=== PATIENT | female | born 1955 | race Caucasian/White ===

== ENCOUNTER 2020-03-31 15:01 | Inpatient (IN) ==
[2020-03-31] MEDS ORDERED: ONDANSETRON INJ 2 MG/ML 2 ML VIAL IV STA (15:29)
[2020-03-31] MEDS ORDERED: KETOROLAC TROMETHAMINE 15 MG/ML VIAL IV STA (15:29)
[2020-03-31] MEDS ORDERED: SODIUM CHLORIDE 0.9% 500 ML IV SCH (15:30)
--- NOTE | 2020-03-31 15:37 | Emergency Department Note ---
Impression & Plan Lower back pain, Lumbar disc herniation, Fall ED Provider Note NAME: JANE BAÑUELOS AGE: 65 SEX: F : 1955 ARRIVES VIA: Walk-In INFORMANT: [Patient] ED PROVIDER(S): [Gunnar Logan MD] CHIEF COMPLAINT: Back pain HISTORY OF PRESENT ILLNESS: The patient is a 65-year-old female who states that she fell about 6 days ago. She thinks she lost her balance but she cannot be exactly sure. There was no loss of consciousness. She injured her lower back and she has had severe pain ever since. The pain is now a 10/10. The pain is worse with any movement or palpation. She has noticed some difficulty with urination and at times, she thinks she mccloud lost some urine. She has pain radiating down both legs. No numbness in the legs. The patient has not had cough or congestion or fever. She did not strike her head. There is no abdominal pain. She is not on any blood thinners. She has tried [id number] pain medication without any relief. She states that she has noticed that her legs are now more swollen because, she cannot lay down to elevate them. REVIEW OF SYSTEMS: See HPI for pertinent positives and negatives. A total of ten systems were reviewed and were otherwise negative. PMHx/PSHx: See Below SOCIAL HISTORY: See Below. PHYSICAL EXAM: GENERAL: Patient is in moderate distress from pain. HEENT: No acute trauma, normocephalic atraumatic, mucous membranes moist, no nasal congestion, no scleral icterus. NECK: No stridor, no adenopathy, no meningismus, trachea is midline. LUNGS: Clear to auscultation bilaterally, no wheeze, no rhonchi, breath sounds equal. HEART: 2/6 systolic murmur, regular rate and rhythm. ABDOMEN: Soft, nontender, bowel sounds positive, no hernias, no peritonitis. EXTREMITIES: No cyanosis, moderate bilateral pedal edema, full range of motion of all the joints without pain or difficulty, no signs for acute trauma. NEUROLOGIC: Oriented x 3, no acute motor or sensory deficits, no focal weakness. I cannot elicit reflexes in her lower extremities because she is too tense from pain. She cannot sit still for me to check the reflexes. SKIN: No rash, no jaundice, no diaphoresis. Back: Tender to the entire lower back in the area of the lumbar spine, no step- offs, no contusion. DIFFERENTIAL DIAGNOSIS: Musculoskeletal, disc herniation, fracture, metastatic disease, cord matteo geri, discitis, sciatica, cauda equina, infection, aortic disease, renal colic, gastrointestinal, as well as other pathologies. EMERGENCY DEPARTMENT COURSE/PROCEDURES: MEDICAL DECISION MAKING: There is no leukocytosis or concerning anemia. Potassium was somewhat low at 3.1. Creatinine mildly elevated at 1.74. No worrisome liver enzyme elevation. Urinalysis did not show infection or hematuria. Lumbar spine MRI shows disc herniations with some spinal cord sac compression. There was some canal narrowing. No fracture was seen. On my exam, the patient was tender diffusely over the lumbar spine. There is no step-off. She did not appear to have any weakness in her lower extremities. I could not elicit reflexes as she was so tense from the pain. The patient was quite uncomfortable. She required morphine multiple times as well as IV Dilaudid for pain control. She was given IV saline, IV Zofran. She received IV Toradol. She was given a dose of IV Decadron. The patient is quite uncomfortable despite all the medications listed above. She is in no condition to be discharged home. I did discuss her case with spinal surgery. There is no acute surgical emergency. The patient can be hospitalized for pain control and a spinal surgical consult. The patient is aware of her findings, she is happy that nothing is fractured. I did speak to the case repairer. The on-call hospitalist was consulted. Past Med/Surg History Medical History Hypertension Social History Preferred Language: Taiwanese Communication Ability: Effective Shared Services Manager Required: No Beliefs That Will Affect Care: None Current Living Situation: Spouse Feels Safe at Home: Yes Smoking Status: Never smoker Hx Alcohol Use: No Hx Substance Use: No Allergies Allergies Allergy/AdvReac Type Severity Reaction Status Date / Time Penicillins Allergy Rash Unverified 03/31/20 18:39 codeine AdvReac N/V Unverified 03/31/20 18:39 Home Meds Home Medications Medication Instructions Recorded Confirmed ibuprofen 400 mg PO BID PRN 03/31/20 03/31/20 levothyroxine 75 mcg PO QAM 03/31/20 03/31/20 losartan 50 mg PO DAILY 03/31/20 03/31/20 red yeast rice 2,400 mg PO DAILY 03/31/20 03/31/20 Results & Data (ED) Vital Signs Vital Signs - 24 hr 03/31/20 15:02 03/31/20 15:57 03/31/20 16:00 Temperature 37.0 C Temperature Source Oral Pulse Rate 105 H 91 H 92 H Pulse Rate [Apical] Pulse Rate from SpO2 Sensor Pulse Rhythm [Apical] Pulse Strength [Apical] Respiratory Rate 20 25 H 20 Respiratory Effort / Characteristics Non-Labored Respiratory Depth Normal Respiratory Pattern Blood Pressure 168/80 H Blood Pressure [Right Arm] Blood Pressure Mean 109 Blood Pressure Mean [Right Arm] Blood Pressure Position [Right Arm] Pulse Oximetry 96 Oxygen Delivery Method Room Air Sepsis Recent Fever Within 48 Hours No Sepsis New/Unexplained Change in Mental Status No Sepsis Action Taken by Nursing No Action Required Oxygen Flow Rate - Titration Pulse Oximetry Post Tiitration 03/31/20 16:25 03/31/20 16:30 03/31/20 17:42 Temperature Temperature Source Pulse Rate 103 H 96 H Pulse Rate [Apical] 92 H Pulse Rate from SpO2 Sensor 105 H Pulse Rhythm [Apical] Regular Pulse Strength [Apical] Normal Respiratory Rate 28 H 16 Respiratory Effort / Characteristics Non-Labored Spontaneous Respiratory Depth Normal Respiratory Pattern Regular Blood Pressure 139/79 Blood Pressure [Right Arm] 139/79 Blood Pressure Mean 91 Blood Pressure Mean [Right Arm] 99 Blood Pressure Position [Right Arm] Lying Pulse Oximetry 97 80 L Oxygen Delivery Method Room Air Sepsis Recent Fever Within 48 Hours Sepsis New/Unexplained Change in Mental Status Sepsis Action Taken by Nursing Oxygen Flow Rate - Titration Pulse Oximetry Post Tiitration 03/31/20 17:43 03/31/20 17:50 03/31/20 18:00 Temperature Temperature Source Pulse Rate Pulse Rate [Apical] 103 H Pulse Rate from SpO2 Sensor 105 H 93 H Pulse Rhythm [Apical] Pulse Strength [Apical] Respiratory Rate 18 Respiratory Effort / Characteristics Respiratory Depth Respiratory Pattern Blood Pressure 163/87 H 144/58 H Blood Pressure [Right Arm] 163/87 H Blood Pressure Mean 136 87 Blood Pressure Mean [Right Arm] 112 Blood Pressure Position [Right Arm] Pulse Oximetry 100 94 98 Oxygen Delivery Method Room Air Sepsis Recent Fever Within 48 Hours Sepsis New/Unexplained Change in Mental Status Sepsis Action Taken by Nursing Oxygen Flow Rate - Titration Pulse Oximetry Post Tiitration 03/31/20 18:30 03/31/20 19:00 03/31/20 19:02 Temperature Temperature Source Pulse Rate 101 H 104 H 96 H Pulse Rate [Apical] Pulse Rate from SpO2 Sensor 101 H 104 H 97 H Pulse Rhythm [Apical] Pulse Strength [Apical] Respiratory Rate 27 H 15 15 Respiratory Effort / Characteristics Respiratory Depth Respiratory Pattern Blood Pressure 124/78 155/61 H Blood Pressure [Right Arm] Blood Pressure Mean 107 75 Blood Pressure Mean [Right Arm] Blood Pressure Position [Right Arm] Pulse Oximetry 100 99 92 Oxygen Delivery Method Sepsis Recent Fever Within 48 Hours Sepsis New/Unexplained Change in Mental Status Sepsis Action Taken by Nursing Oxygen Flow Rate - Titration Pulse Oximetry Post Tiitration 03/31/20 19:30 03/31/20 19:31 03/31/20 20:00 Temperature Temperature Source Pulse Rate 101 H 96 H 101 H Pulse Rate [Apical] Pulse Rate from SpO2 Sensor 100 H 96 H 101 H Pulse Rhythm [Apical] Pulse Strength [Apical] Respiratory Rate 18 12 16 Respiratory Effort / Characteristics Respiratory Depth Respiratory Pattern Blood Pressure 106/77 Blood Pressure [Right Arm] Blood Pressure Mean 83 Blood Pressure Mean [Right Arm] Blood Pressure Position [Right Arm] Pulse Oximetry 96 97 98 Oxygen Delivery Method Room Air Nasal Cannula Sepsis Recent Fever Within 48 Hours Sepsis New/Unexplained Change in Mental Status Sepsis Action Taken by Nursing Oxygen Flow Rate - Titration 2 Pulse Oximetry Post Tiitration 96 03/31/20 20:01 03/31/20 20:02 03/31/20 20:30 Temperature Temperature Source Pulse Rate 100 H 99 H 95 H Pulse Rate [Apical] Pulse Rate from SpO2 Sensor 100 H 99 H 95 H Pulse Rhythm [Apical] Pulse Strength [Apical] Respiratory Rate 22 18 21 Respiratory Effort / Characteristics Respiratory Depth Respiratory Pattern Blood Pressure 134/56 L Blood Pressure [Right Arm] Blood Pressure Mean 91 Blood Pressure Mean [Right Arm] Blood Pressure Position [Right Arm] Pulse Oximetry 97 96 97 Oxygen Delivery Method Sepsis Recent Fever Within 48 Hours Sepsis New/Unexplained Change in Mental Status Sepsis Action Taken by Nursing Oxygen Flow Rate - Titration Pulse Oximetry Post Tiitration 03/31/20 20:31 Temperature Temperature Source Pulse Rate 102 H Pulse Rate [Apical] Pulse Rate from SpO2 Sensor 101 H Pulse Rhythm [Apical] Pulse Strength [Apical] Respiratory Rate 31 H Respiratory Effort / Characteristics Respiratory Depth Respiratory Pattern Blood Pressure 126/51 L Blood Pressure [Right Arm] Blood Pressure Mean 55 Blood Pressure Mean [Right Arm] Blood Pressure Position [Right Arm] Pulse Oximetry 97 Oxygen Delivery Method Sepsis Recent Fever Within 48 Hours Sepsis New/Unexplained Change in Mental Status Sepsis Action Taken by Nursing Oxygen Flow Rate - Titration Pulse Oximetry Post Tiitration Home Medications Current Medication List: was personally reviewed by me Laboratory Data Attestation: I reviewed the patient's lab results. Result diagrams: 03/31/20 15:40 03/31/20 15:40 Lab Results 03/31/20 03/31/20 03/31/20 Range/Units 15:40 15:40 18:20 WBC 9.40 (4.8-10.8) K/uL RBC 4.46 (4.2-5.4) M/uL Hgb 12.9 (12.0-16.0) g/dL Hct 40.9 (37-47) % MCV 91.7 (80-100) fL MCH 28.9 (25-34) pg MCHC 31.5 L (32-36) g/dL RDW Std Deviation 45.4 (36.4-46.3) fL RDW Coeff of Leia 13.6 (11.5-14.5) % Plt Count 239 (130-400) K/uL MPV 10.9 H (7.4-10.4) fL Immature Gran % (Auto) 0.1 % Neut % (Auto) 63.9 % Lymph % (Auto) 26.3 % [place] % (Auto) 7.7 % Eos % (Auto) 1.5 % Baso % (Auto) 0.5 % Neut # (Auto) 6.01 (1.4-6.5) K/uL Lymph # (Auto) 2.47 (1.2-3.4) K/uL [place] # (Auto) 0.72 H (0.11-0.59) K/uL Eos # (Auto) 0.14 (0-0.5) K/uL Baso # (Auto) 0.05 (0-0.2) K/uL Immature Gran # (Auto) 0.01 (0.00-0.02) K/uL Sodium 139 (136-145) mmol/L Potassium 3.1 L (3.5-5.1) mmol/L Chloride 106 (98-107) mmol/L Carbon Dioxide 27 (21-32) mmol/L Anion Gap 6.0 (3-11) BUN 52 H (7-18) mg/dl Creatinine 1.74 H (0.6-1.2) mg/dl Est Cr Clr Drug Dosing Not Reportable Est GFR ( Amer) 34.6 Est GFR (Non-Af Amer) 29.8 BUN/Creatinine Ratio 29.6 H (10-20) Glucose 100 H (70-99) mg/dl Calcium 10.6 H (8.5-10.1) mg/dl Total Bilirubin 0.7 (0.2-1) mg/dl AST 20 (15-37) U/L ALT 32 (12-78) U/L Alkaline Phosphatase 78 (45-117) U/L Total Protein 7.4 (6.4-8.2) gm/dl Albumin 3.8 (3.4-5.0) gm/dl Globulin 3.6 (2.5-4.0) gm/dl Albumin/Globulin Ratio 1.1 (0.9-2) Urine Color Yellow Urine Appearance Clear (Clear) Urine pH 5.0 (4.5-7.5) Ur Specific Fine 1.026 (1.000-1.030) Urine Protein Negative (Negative) Urine Glucose (UA) Negative (Negative) Urine Ketones Trace H (Negative) Urine Blood Negative (Negative) Urine Nitrite Negative (Negative) Urine Bilirubin Negative (Negative) Urine Urobilinogen Negative (Negative) Ur Leukocyte Esterase Negative (Negative) Administered Medications Diphenhydramine HCl (Benadryl) 25 mg IV ONE PRN PRN Reason: PRIOR TO NEXT DILAUDID DOSE Stop: 04/30/20 22:04 Last Admin: 03/31/20 22:39 Dose: 25 mg Documented by: [id number] Hydromorphone HCl (Dilaudid) 0.5 mg IV Q2H PRN PRN Reason: moderate pain (scale 4-6) Stop: 04/14/20 22:04 Last Admin: 03/31/20 22:39 Dose: 0.5 mg Documented by: [id number] Lactated Ringer's (Lr) 1,000 mls @ 75 mls/hr IV .[id number] ARMEN Stop: 04/30/20 22:04 Last Admin: 03/31/20 22:17 Dose: 75 mls/hr Documented by: [id number] Discontinued Medications Dexamethasone Sodium Phosphate (Decadron Pf) 10 mg IV NOW ONE Stop: 03/31/20 18:43 Last Admin: 03/31/20 18:56 Dose: 10 mg Documented by: [id number] Hydromorphone HCl (Dilaudid) 0.5 mg IV NOW STA Stop: 03/31/20 16:31 Last Admin: 03/31/20 16:35 Dose: 0.5 mg Documented by: [id number] Hydromorphone HCl (Dilaudid) 0.5 mg IV NOW STA Stop: 03/31/20 18:00 Last Admin: 03/31/20 18:11 Dose: 0.5 mg Documented by: [id number] Sodium Chloride (Nss) 500 mls @ 999 mls/hr IV .Q31M ARMEN Stop: 03/31/20 16:00 Last Infusion: 03/31/20 16:19 Dose: 0 mls/hr Documented by: [id number] Admin: 03/31/20 15:48 Dose: 999 mls/hr Documented by: [id number] Sodium Chloride (Nss 1000ml) 500 mls @ 999 mls/hr IV .Q31M ONE Stop: 03/31/20 16:54 Last Infusion: 03/31/20 18:55 Dose: 0 mls/hr Documented by: [id number] Admin: 03/31/20 17:44 Dose: 999 mls/hr Documented by: [id number] Ketorolac Tromethamine (Toradol) 15 mg IV NOW STA Stop: 03/31/20 15:30 Last Admin: 03/31/20 15:48 Dose: 15 mg Documented by: [id number] Morphine Sulfate (Morphine Sulfate) 6 mg IV Q30M PRN PRN Reason: Pain Stop: 04/14/20 15:28 Last Admin: 03/31/20 17:44 Dose: 6 mg Documented by: [id number] Admin: 03/31/20 16:26 Dose: 6 mg Documented by: [id number] Admin: 03/31/20 15:48 Dose: 6 mg Documented by: [id number] Morphine Sulfate (Morphine Sulfate) Confirm Administered Dose 4 mg .ROUTE .[facility]- MED ONE Stop: 03/31/20 17:44 Last Admin: 03/31/20 17:45 Dose: Not Given Documented by: [id number] Morphine Sulfate (Morphine Sulfate) Confirm Administered Dose 2 mg .ROUTE .[facility]- MED ONE Stop: 03/31/20 17:44 Last Admin: 03/31/20 17:45 Dose: Not Given Documented by: [id number] Ondansetron HCl (Zofran) 4 mg IV NOW STA Stop: 03/31/20 15:30 Last Admin: 03/31/20 15:48 Dose: 4 mg Documented by: [id number] Imaging Data Radiologist's Impression: MR lumbar spine wo con HISTORY: fall, severe pain, losing urine, pain down legs TECHNIQUE: Multiplanar multisequence MRI of the lumbar spine was performed without the use of contrast. COMPARISON: None. FINDINGS: For the purpose of the report the L5-S1 disc space will be located on axial image 23 of 25. Mild degenerative disc changes throughout. Vertebral body stature is normal. P osterior disc herniation L1-L2. L1-L2: Broad-based left central posterior disc herniation. Moderate impact upon the anterior aspect of the thecal sac. Mild narrowing left neural foramina. Right neural foramina is patent. L2-L3: No significant central canal or neural foraminal narrowing. L3-L4: No significant central canal or neural foraminal narrowing. L4-L5: Broad-based bulging disc. Mild to moderate multifactorial narrowing of the spinal canal. Minimal narrowing right neural foramina. L5-S1: Broad-based bulging disc. No significant impact of the thecal sac. Neural foramina are patent bilaterally. IMPRESSION: 1. Left central disc herniation L1-L2 creating moderate impact upon the anterior aspect of the thecal sac and mild to moderate narrowing left neural foramina. 2. Broad-based bulging disc L4-L5 with mild to moderate multifactorial narrowing of the spinal canal. Blood Pressure Blood Pressure Findings: Elevated blood pressure Blood Pressure Disposition: further management by hospitalist Discharge Plan Visit Data *Final* Discharge Date/Time: 03/31/20 21:12 Chief Complaint: Back Injury/Pain Stated Complaint: SEVERE BACK PAIN ED Provider: Gunnar Logan Discharge Problem: Lower back pain, Lumbar disc herniation, Fall Patient Disposition: Admitted As Inpatient Condition: Good Discharge Instructions Interventions: ED Discharge Assessment Last Done: 03/31/20 21:12 Discharge Problem: Lower back pain Qualifiers: Chronicity: acute Back pain laterality: midline Sciatica presence: with sciatica Sciatica laterality: bilateral sciatica Qualified Code(s): M54.42 - Lumbago with sciatica, left side Fall Qualifiers: Encounter type: initial encounter Qualified Code(s): W19.XXXA - Unspecified fall, initial encounter
[2020-03-31] MEDS: MoRPHine SULFATE 10 MG/ML CARP/VIAL IV PRN ×3 (15:48→17:44)
[2020-03-31 16:01] LABS: Basophils # (auto) 0.05 K/uL (0-0.2); Basophils % (auto) 0.5 %; Eosinophils # (auto) 0.14 K/uL (0-0.5); Eosinophils % (auto) 1.5 %; Hematocrit (blood only) 40.9 % (37-47); Hemoglobin 12.9 g/dL (12.0-16.0); Immature Granulocytes # (auto) 0.01 K/uL (0.00-0.02); Immature Granulocytes % (auto) 0.1 %; Lymphocytes # (auto) 2.47 K/uL (1.2-3.4); Lymphocytes % (auto) 26.3 %; Mean Corpuscular Hemoglobin 28.9 pg (25-34); Mean Corpuscular Hgb Conc 31.5 g/dL (32-36); Mean Corpuscular Volume 91.7 fL (80-100); Mean Platelet Volume 10.9 fL (7.4-10.4); Monocytes # (auto) 0.72 K/uL (0.11-0.59); Monocytes % (auto) 7.7 %; Neutrophils # (auto) 6.01 K/uL (1.4-6.5); Neutrophils % (auto) 63.9 %; Platelet Count 239 K/uL (130-400); RDW Coefficient of Variation 13.6 % (11.5-14.5); RDW Standard Deviation 45.4 fL (36.4-46.3); Red Blood Count 4.46 M/uL (4.2-5.4)
[2020-03-31 16:18] LABS: Alanine Aminotransferase 32 U/L (12-78); Albumin Level 3.8 gm/dl (3.4-5.0); Aspartate Aminotransferase 20 U/L (15-37); BUN Creatinine Ratio 29.6 (10-20); Blood Urea Nitrogen 52 mg/dl (7-18); Calcium 10.6 mg/dl (8.5-10.1); Carbon Dioxide 27 mmol/L (21-32); Chloride 106 mmol/L (98-107); Est GFR (African American) 34.6; Est GFR (Non-African American) 29.8; Glucose 100 mg/dl (70-99); Potassium 3.1 mmol/L (3.5-5.1); Sodium 139 mmol/L (136-145)
[2020-03-31 16:21] LABS: Albumin Globulin Ratio 1.1 (0.9-2); Alkaline Phosphatase 78 U/L (45-117); Bilirubin,Total 0.7 mg/dl (0.2-1); Globulin 3.6 gm/dl (2.5-4.0); Total Protein 7.4 gm/dl (6.4-8.2)
[2020-03-31] MEDS ORDERED: SODIUM CHLORIDE 0.9% 1000ML 500 ML IV ONE (16:24)
[2020-03-31] MEDS ORDERED: HYDROmorphone INJ 0.5 MG/0.5 ML SYR IV STA ×2 (16:30→17:59)
[2020-03-31] MEDS ORDERED: MoRPHine SULFATE 4 MG/ML 1 ML CARP\\VIAL ONE (17:43)
[2020-03-31] MEDS ORDERED: MoRPHine SULFATE 2 MG/ML CARP ONE (17:43)
--- NOTE | 2020-03-31 17:46 | Magnetic Resonance Report ---
MR lumbar spine wo con HISTORY: fall, severe pain, losing urine, pain down legs TECHNIQUE: Multiplanar multisequence MRI of the lumbar spine was performed without the use of contras t. COMPARISON: None. FINDINGS: For the purpose of the report the L5-S1 disc space will be located on axial image 23 of 25. Mild degenerative disc changes throughout. Vertebral body stature is normal. Posterior disc herniatio n L1-L2. L1-L2: Broad-based left central posterior disc herniation. Moderate impact upon the anterior aspect o f the thecal sac. Mild narrowing left neural foramina. Right neural foramina is patent. L2-L3: No significant central canal or neural foraminal narrowing. L3-L4: No significant central canal or neural foraminal narrowing. L4-L5: Broad-based bulging disc. Mild to moderate multifactorial narrowing of the spinal canal. Minim al narrowing right neural foramina. L5-S1: Broad-based bulging disc. No significant impact of the thecal sac. Neural foramina are patent bilaterally. IMPRESSION: 1. Left central disc herniation L1-L2 creating moderate impact upon the anterior aspect of the thecal sac and mild to moderate narrowing left neural foramina. 2. Broad-based bulging disc L4-L5 with mild to moderate multifactorial narrowing of the spinal canal. ACT 112: Negative or not required by law. The above report was generated using voice recognition software. It may contain grammatical, syntax or spelling errors. Electronically signed by: Tom Mejias M.D. 03/31/2020 5:45 PM
[2020-03-31 18:27] LABS: Appearance Urine Clear (Clear); Bilirubin Urine Negative (Negative); Blood Urine Negative (Negative); Color Urine Yellow; Glucose Urine UA Negative (Negative); Ketones Urine Trace (Negative); Leukocyte Esterase Urine Negative (Negative); Nitrite Urine Negative (Negative); Protein Urine Negative (Negative); Specific Gravity Urine 1.026 (1.000-1.030); Urobilinogen Urine Negative (Negative)
[2020-03-31] MEDS ORDERED: DEXAMETHASONE **PF** INJ 10 MG/ML VIAL IV ONE (18:42)
[2020-03-31] MEDS ORDERED: ACETAMINOPHEN 325 MG TAB PO PRN (22:05)
[2020-03-31] MEDS ORDERED: ONDANSETRON INJ 2 MG/ML 2 ML VIAL IV PRN (22:05)
[2020-03-31] MEDS ORDERED: MAGNESIUM HYDROXIDE SUSP 30 ML UDC PO PRN (22:05)
[2020-03-31] MEDS ORDERED: ACETAMINOPHEN 500 MG TAB PO PRN (22:05)
[2020-03-31] MEDS ORDERED: DiphenhydrAMINE HCL 50 MG/ML VIAL IV PRN (22:05)
[2020-03-31] MEDS: HYDROmorphone INJ 0.5 MG/0.5 ML SYR IV PRN ×2 (22:17→22:39)
[2020-03-31] MEDS: LACTATED RINGER'S 1,000 ML IV SCH (22:17)
--- NOTE | 2020-03-31 22:46 | History & Physical Report ---
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 Hinton with multiple day time frame and no worsening of urinary symptoms and normal neuro exam, feel safe to admit and wait as this does not appear to be a compression emergency 10 mg decadron + 6 mg q6h Dilaudid prn for pain as well as tylenol, lidocaine patches voltaren gel Pain managment consulted will see patient in am Acute hypoxemic respiratory Failure Likely secondary to large doses of narcotics given in ED Will keep close eye on O2 sats so as not to suppress her respiratory drive Acute kidney Injury Creatinine elevated to 1.74 Likely secondary to dehyrdation as patient tells me PO intake has been poor Will monitor ins and outs and give IV fluid rehydration. Hypothyroidism Continue home dose of levothyroxine Hypertension Continue home losartan Dispo: Med surg for pain management and ortho evaluation F/E/N: LR 75 mls/hour and K rider x4 DVT PPx: Lovenox Full Code (2) Lumbar disc herniation: (3) Fall: (4) Hypokalemia: (5) Acute hypoxemic respiratory failure: (6) Hypertension: (7) Hypothyroidism: History of Present Illness Chief Complaint: Back Pain Primary Care Provider: Yanira Mejia Anabel Estes is a 65 year old woman with a past medical history of hypothyroidism, hypertension and hyperlipidemia who presents today after suffering a fall last week and having worsening back pain. Ms. Estes had a fall from her own height last week on either Sunday or afternoon. She described the fall as kind of a twisting fall that was purely mechanical which she ended up on her side. She did not hit her head, did not have any other injuries. She was able to get herself up and ambulated okay. She then developed worsening pain. The pain is located both in her lumbar spine area as well as shooting down her leg to just short of her knee. It became most severe over the weekend and has not gone down since then. Pain is 10/10 she is unable to function. Was here with family from [facility] looking for a house but was unable to help family in this endeavor and came into emergency department. She tells me she has been having urinary symptoms as well, she had decreased urination over the weekend and has noticed occasional small amounts of unexpected urinary incontinence since then. She is incredibly uncomfortable at present and is having trouble relaying her story to me secondary to pain. Patient does not endorse any chest pain, shortness of breath, exertional symptoms, fevers, chills, sweats, nausea, vomiting, belly pain, weakness or lower limb weakness, discoordination, fecal incontinence, or any other concerns on review of systems On presentation to the emergency department patients vitals were WNL apart from some mild tachycardia, she received one dose of toradol, and 4 doses of .5 mg Dilaudid 10 mg of dexamethasone. Lumbar spine MRI showing herniation of L1-L2, with moderate impact upon anterior aspect of thecal sac with mild narrowing of left neural foramina. 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 Wishes to be a full code, nonsmoker, no alcohol abuse, no drug abuse. Allergies Allergy/AdvReac Type Severity Reaction Status Date / Time Penicillins Allergy Rash Unverified 03/31/20 18:39 codeine AdvReac N/V Unverified 03/31/20 18:39 Home Medications Home Medications Medication Instructions Recorded Confirmed Type ibuprofen 400 mg PO BID PRN 03/31/20 03/31/20 History levothyroxine 75 mcg PO QAM 03/31/20 03/31/20 History losartan 50 mg PO DAILY 03/31/20 03/31/20 History red yeast rice 2,400 mg PO DAILY 03/31/20 03/31/20 History Past Med/Surg History Medical History Hypertension Hypothyroidism Social History Preferred Language: Togolese Communication Ability: Effective 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 Beliefs That Will Affect Care: None Current Living Situation: Spouse Feels Safe at Home: Yes Smoking Status: Never smoker Hx Alcohol Use: No Hx Substance Use: No Review of Systems Review of Systems: All systems reviewed & are unremarkable except as noted in HPI & below Physical Exam Constitutional: well developed, well nourished, + acute distress and + obese; not ill appearing and no altered mental status Eyes: PERRL, conjunctivae normal, anicteric sclerae ENMT: external ear and nose normal, oropharynx normal Respiratory: normal respiratory effort, lungs clear to auscultation Cardiovascular: RRR, no murmur, no edema Gastrointestinal (Abdomen): normal bowel sounds, soft, nontender, no hepatosplenomegaly Musculoskeletal: Patient with extreme pain to twisting of torso, bilateral leg raising and even just lowering the bed. No spinous process tenderness, no paraspinal muscle tenderness, Neurologic: patellar DTR's 2+ bilat, sensation intact No anal laxity, no saddle area numbness, no loss of sensation to bilateral lower extremities, no loss in muscle strength. Results & Data Results & Data ([facility]) Vital Signs (Past 12 Hours) Vital Signs Temp Pulse Pulse Resp BP BP Pulse Ox 03/31/20 19:30 80 L 03/31/20 17:50 103 H 18 163/87 H 94 03/31/20 16:25 92 H 18 139/79 97 03/31/20 15:02 37.0 C 105 H 20 168/80 H 96 Supervising Physician Co-Signing Physician Notes Attending addendum: I have physically seen this patient, have supervised the medical residents activities, and agree with the H&P unless as otherwise noted. Assessment and Plan: Intractable low back pain/L4-5 mild to moderate central spinal canal narrowing/L1-2 disc herniation causing narrowed left foramen with compromise- MRI showing disc herniation with thecal sac compression Mild urinary control issues without significant incontinence, and no fecal incontinence. Given Decadron 10 mg IV in the ED, and will continue 6 mg IV every 6 hours. Acetaminophen 1000 mg IV every 8 hours PRN mild pain or temperature. Topical application of lidocaine patches and Voltaren gel Dilaudid 0.5 mg IV every 3 hours as needed severe pain Consult orthopedic spine surgery Dr. Hinton Acute kidney injury, presumed, with no previous comparison/hypertension- Creatinine 1.74 upon admission Continue losartan 50 mg daily p.o. for now, but if unclear regarding improvement with IV fluids, may do a trial off of losartan NSS@100 mils per hour. Minimize NSAIDs such as ibuprofen Repeat BMP in a.m. Hypoxia- Secondary to necessary aggressive pain management by the ED. Continue supplemental oxygen for now, with the goal 94 to 95% pulse ox. Monitor closely as work with pain control. Hypothyroidism- Continue levothyroxine 75 mcg every morning Hyperlipidemia- Hold red yeast rice 2400 mg daily Remainder of orders and notations as noted Resident Activity Tracking Resident Involvement: Resident Care Provided Care Provided: Adult Hospital Medicine (1) Lower back pain Back pain laterality: midline Chronicity: acute Sciatica laterality: bilateral sciatica Sciatica presence: with sciatica Qualified Code(s): M54.42 - Lumbago with sciatica, left side; M54.41 - Lumbago with sciatica, right side (2) Fall Encounter type: initial encounter Qualified Code(s): W19.XXXA - Unspecified fall, initial encounter
[2020-04-01] MEDS: dexAMETHasone 6 MG in SYRINGE 0 ML IV SCH ×3 (00:25→12:16)
[2020-04-01] MEDS: DICLOFENAC SOD 1% GEL 100 GM TUBE EXT SCH ×3 (00:59→21:00)
[2020-04-01] MEDS: HYDROmorphone INJ 0.5 MG/0.5 ML SYR IV PRN ×4 (01:27→14:08)
[2020-04-01] MEDS: LEVOTHYROXINE SODIUM 75 MCG TABLET PO SCH (06:23)
[2020-04-01] MEDS: POTASSIUM CHLORIDE / WTR 10 MEQ/100 ML PLCT IV SCH ×3 (06:28→08:55)
--- NOTE | 2020-04-01 07:47 | Ultrasound Report ---
BILATERAL LOWER EXTREMITY VENOUS DOPPLER HISTORY: Bilateral leg swelling and pain possible dvt with immobility COMPARISON STUDY: None. FINDINGS: There is normal compressibility, flow, and augmentation within the bilateral lower extremit y deep venous systems. IMPRESSION: No DVT within the right or left lower extremity. ACT 112: Negative or not required by law. Electronically signed by: Sami Washington M.D. 04/01/2020 7:45 AM
[2020-04-01] MEDS: LOSARTAN POTASSIUM 50 MG TAB PO SCH (07:56)
[2020-04-01] MEDS: LIDOCAINE 5% 1 PATCH TD SCH (07:56)
[2020-04-01] MEDS: POLYETHYLENE (MIRALAX) 17 GM PACK PO SCH (07:57)
[2020-04-01] MEDS ORDERED: RED YEAST RICE 2400 MG PO SCH (09:00)
--- NOTE | 2020-04-01 09:13 | Pain Management Consultation ---
Date of Consultation April 01, 2020 Assessment & Plan (1) Lower back pain: 1. Continue Dexamethasone, Diclofenac, Lidocaine patches, IV Dilaudid. 2. Will initiate the patient on Oxycodone 5mg x 6 hours PRN pain and Flexeril 5mg TID PRN spasm. 3. Symptoms may be lumbar strain vs exacerbation of lumbar stenosis at L4-5, will plan to treat conservatively with medications. May consider epidural steroid injection if not improved. Thank you for the consultation. Back pain laterality: midline Chronicity: acute Sciatica laterality: bilateral sciatica Sciatica presence: with sciatica Qualified Code(s): M54.42 - Lumbago with sciatica, left side; M54.41 - Lumbago with sciatica, right side History of Present Illness Attending Physician: Aaliyah Willett MD History of Present Illness Mrs. Estes is a 65-year-old female that has been admitted to the [facility] for lumbar radiculopathy. Patient did have a mechanical fall last week. The pain has been gradually worsening to where she describes left low back pain radiating along the left leg in an L5 distribution to the foot. Pain is aggravated with standing, walking, sitting. Lying supine provides mild relief. She denies any prior history of lumbar issues. At home she was taking ibuprofen and Tylenol with minimal relief. Pain is currently 6/10 while laying supine and 10/10 when ambulating. She does report a few occasions with small amounts of urinary incontinence. She is currently receiving IV Dilaudid, IV Decadron, Lidocaine patches, and Voltaren gel. Pain has slightly improved since admission last night. No bowel incontinence, foot drop, leg weakness. Pain Assessment Full Body Front + Back: 1. 2. Allergies Allergy/AdvReac Type Severity Reaction Status Date / Time Penicillins Allergy Rash Unverified 03/31/20 18:39 codeine AdvReac N/V Unverified 03/31/20 18:39 Home Medications Home Medications Medication Instructions Recorded Confirmed Type ibuprofen 400 mg PO BID PRN 03/31/20 03/31/20 History levothyroxine 75 mcg PO QAM 03/31/20 03/31/20 History losartan 50 mg PO DAILY 03/31/20 03/31/20 History red yeast rice 2,400 mg PO DAILY 03/31/20 03/31/20 History Patient History Medical History Hypertension Hypothyroidism Social History Preferred Language: Lebanese Communication Ability: Effective Germination Testing Manager Required: No Beliefs That Will Affect Care: None Current Living Situation: Spouse Feels Safe at Home: Yes Smoking Status: Never smoker Hx Alcohol Use: No Hx Substance Use: No Physical Exam Physical Exam: GENERAL: This is a morbidly obese 65 year old female. Appears comfortable laying supine. There is moderate pain with movement. HEAD/FACE: Normocephalic and atraumatic. EYES: No drainage or conjunctival injection. CHEST/AXILLA: Chest movement symmetrical. No deformities noted. BACK: Loss of lumbar lordosis. There is mild tenderness along the left quadratus lumborum muscle, left superior gluteal muscle, and the left L4-5 region. No trigger points noted. + lidocaine patch over the painful areas. SKIN: [place], warm and dry. No rash noted. MS/EXTREMITY: 5/5 strength of the bilateral lower extremities. Negative straight leg raise bilaterally. NEURO: Alert and appears oriented. Speech is fluent. Cranial Nerves are grossly intact. PSYCH: Alert, pleasant, affect is calm Results Diagnostic Review MRI Findings: MR lumbar spine wo con HISTORY: fall, severe pain, losing urine, pain down legs TECHNIQUE: Multiplanar multisequence MRI of the lumbar spine was performed without the use of contrast. COMPARISON: None. FINDINGS: For the purpose of the report the L5-S1 disc space will be located on axial image 23 of 25. Mild degenerative disc changes throughout. Vertebral body stature is normal. Posterior disc herniation L1-L2. L1-L2: Broad-based left central posterior disc herniation. Moderate impact upon the anterior aspect of the thecal sac. Mild narrowing left neural foramina. Right neural foramina is patent. L2-L3: No significant central canal or neural foraminal narrowing. L3-L4: No significant central canal or neural foraminal narrowing. L4-L5: Broad-based bulging disc. Mild to moderate multifactorial narrowing of the spinal canal. Minimal narrowing right neural foramina. L5-S1: Broad-based bulging disc. No significant impact of the thecal sac. Neural foramina are patent bilaterally. IMPRESSION: 1. Left central disc herniation L1-L2 creating moderate impact upon the anterior aspect of the thecal sac and mild to moderate narrowing left neural foramina. 2. Broad-based bulging disc L4-L5 with mild to moderate multifactorial narrowing of the spinal canal. ACT 112: Negative or not required by law. The above report was generated using voice recognition software. It may contain grammatical, syntax or spelling errors. Electronically signed by: Tom Mejias M.D. 03/31/2020 5:45 PM
[2020-04-01] MEDS ORDERED: CYCLOBENZAPRINE HCL 5 MG TAB PO PRN (09:18)
[2020-04-01] MEDS: OXYCODONE HCL IR 5 MG TAB (IMMEDIATE RELEASE) PO PRN ×2 (09:54→17:47)
[2020-04-01 10:16] LABS: BUN Creatinine Ratio 33.5 (10-20); Calcium 9.7 mg/dl (8.5-10.1); Creatinine Clr Calc Pharmacy 56.1 ml/min; Est GFR (African American) 55.3; Est GFR (Non-African American) 47.7; Potassium 3.9 mmol/L (3.5-5.1)
[2020-04-01] MEDS: LACTATED RINGER'S 1,000 ML IV SCH (12:16)
--- NOTE | 2020-04-01 15:18 | Hospitalist Progress Note ---
Date of Service April 01, 2020 Assessment & Plan (1) Lower back pain: Pooja Estes is a 65 year old woman who presents for evaluation after fall and worsening 10/10 back pain Back Pain/Thecal sac compression Lumbar spine, radiating down left leg with weakness and numbness, severe pain MRI showing disc herniation with thecal sac compression, Left central L1-2 HNP with mild-mod left neuralforaminal narrowing and L4-5 HNP broad based disc bulge Mild urinary symptoms, without saddle area anesthesia, anal laxity or other red flag symptoms 10 mg decadron + 6 mg q6h x 3 more doses given, dilaudid given and minimal relief Seen by Dr. Hinton who can offer decompression and pt is willing to do so as she is unable to move without severe pain and has radiculopathy -increase Dilaudid to 1mg IV q4h prn, continue tylenol, lidocaine patches voltaren gel, oxycodone Pain management consult appreciated Acute hypoxemic respiratory Failure-resolved Likely secondary to large doses of narcotics given in ED Will keep close eye on O2 sats so as not to suppress her respiratory drive Acute kidney Injury Creatinine elevated to 1.74 on admission and now normalized with IVFs Likely secondary to dehydration as patient tells me PO intake has been poor Hypothyroidism Continue home dose of levothyroxine Hypertension Continue home losartan Heart murmur--> check ECHO for preop purposes, check ECG. She has no angina or issues with exercise capacity, can achieve at least 4 METS Will await further studies and possible Cardiology consult based on those to determine preop clearance Dispo: coninued stay Med surg Full Code (2) Spondylolisthesis of lumbar region: (3) ROSE (acute kidney injury): (4) Lumbar disc herniation: (5) Fall: (6) Hypokalemia: (7) Acute hypoxemic respiratory failure: (8) Hypertension: (9) Hypothyroidism: (10) Murmur: Admission and Anticipated Discharge Date Admission Date: March 31, 2020 Subjective Pt continues to have severe left lower back pain radiating through the buttocks and the whole way into her left foot. ANy minor movement send excruciating waves of pain. Dilaudid 0.5mg is not helping much at all. Has numbness in the distal portion of the leg too. Denies chest pain or SOB now or ever. She normally is very active with work and can easily go up and down a flight of stairs without angina. Has never had a stress test or an ECHO. Has never been told she has a murmur. Otherwise no DIAS or nausea, no abd pain, no bowel or bladder issues Review of Systems Review of Systems: All systems reviewed & are unremarkable except as noted in HPI & below Physical Exam Constitutional: WD/WN, vitals as above + obese Eyes: + anicteric sclerae Neck: trachea midline, no thyromegaly Respiratory: normal respiratory effort, lungs clear to auscultation Cardiovascular: Rate/Rhythm: regular rhythm and + tachycardic Heart Sounds: + murmur (2/6 systolic murmur heard throughout) Vessels: no JVD Extremities: + edema (trace edema legs bilat); no calf tenderness Chest (Breasts): Chest: normal inspection of chest Gastrointestinal (Abdomen): normal bowel sounds, soft, nontender, no hepatosplenomegaly Musculoskeletal: Extremities: extremities normal to inspection; no cyanosis and no clubbing Skin: no rashes, warm and dry Neurologic: + focal motor deficit (2/5 LLE strength throughout somewhat limited by pain) and awake Motor/Sensory: + sensory deficit (decreased sensation to lt touch left lateral leg and foot) Psychiatric: A+Ox3, euthymic affect Lymphatic: no lymphedema Results & Data Results & Data ([facility]) Vital Signs (Past 12 Hours) Vital Signs Temp Pulse Resp BP Pulse Ox 04/01/20 07:29 36.9 C 59 L 18 132/71 94 Laboratory Results labs reviewed PG Care Time/CCT Total # of Minutes Spent Total Time Spent with Patient: Total time spent is greater than 50% in coordination of care (as documented) at patient's floor/unit and/or counseling patient: Coding Level of Care Code 50929 Subseq Hosp Care Lvl 3 Diagnoses Lower back pain M54.42; M54.41 Back pain laterality: midline Chronicity: acute Sciatica laterality: bilateral sciatica Sciatica presence: with sciatica Spondylolisthesis of lumbar region M43.16 ROSE (acute kidney injury) N17.9 Lumbar disc herniation M51.26 Fall W19.XXXA Encounter type: initial encounter Hypokalemia E87.6 Acute hypoxemic respiratory failure J96.01 Hypertension I10 Hypothyroidism E03.9 Murmur R01.1 (1) Lower back pain Back pain laterality: midline Chronicity: acute Sciatica laterality: bilateral sciatica Sciatica presence: with sciatica Qualified Code(s): M54.42 - Lumbago with sciatica, left side; M54.41 - Lumbago with sciatica, right side (2) Fall Encounter type: initial encounter Qualified Code(s): W19.XXXA - Unspecified fall, initial encounter
[2020-04-01] MEDS: HYDROmorphone INJ 1 MG/ML SYRINGE IV PRN ×2 (16:13→20:57)
--- NOTE | 2020-04-01 16:33 | Orthopedic Consultation ---
Date of Consultation April 01, 2020 Assessment & Plan (1) Spondylolisthesis of lumbar region: Assessment spondylolisthesis L4-L5 with acute radiculopathy. Plan I had a discussion with this patient regarding her updated MRI findings in combination with x-rays obtained in our office. She demonstrates marked instability across the L4-L5 level on standing flexion-extension views. Her MRI does demonstrate evidence of facet hypertrophy and significant subarticular disease at L4-L5. There is evidence of a disc condition at L1-2 but without significant neural compression. Patient is quite miserable significant neuro deficits and pain involving left lower extremity with inability to ambulate. She would like to pursue surgical intervention. Would require a lumbar decompression fusion at L4-L5. Risk benefits pros cons and alternatives were outlined in detail. This time she will undergo medical evaluation we will consider surgery as soon as possible. Present on Admission?: Yes History of Present Illness Reason for Consultation: Back and bilateral leg pain Attending Physician: Aaliyah Willett MD History of Present Illness This is a 65-year-old female presents the emergency room yesterday with severe back and bilateral leg pain particular involving her left lower extremity. She states this is been progressive for over week. She denies any specific trauma fall or event. Is described as involving the left buttock posterior lateral thigh extending below the knee to the anterior tibia and dorsum of her foot. She notes weakness to the left foot. She must walk using a walker to ambulate. She is not used 1 prior. She must bend over almost 90 degrees to obtain any relief in her leg symptoms. 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 Allergies Allergy/AdvReac Type Severity Reaction Status Date / Time Penicillins Allergy Rash Unverified 03/31/20 18:39 codeine AdvReac N/V Unverified 03/31/20 18:39 Home Medications Home Medications Medication Instructions Recorded Confirmed Type ibuprofen 400 mg PO BID PRN 03/31/20 03/31/20 History levothyroxine 75 mcg PO QAM 03/31/20 03/31/20 History losartan 50 mg PO DAILY 03/31/20 03/31/20 History red yeast rice 2,400 mg PO DAILY 03/31/20 03/31/20 History Patient History Medical History Hypertension Hypothyroidism Social History Preferred Language: Albanian Communication Ability: Effective Road Advisor Required: No Beliefs That Will Affect Care: None Current Living Situation: Spouse Feels Safe at Home: Yes Smoking Status: Never smoker Hx Alcohol Use: No Hx Substance Use: No Physical Exam Physical Exam: On exam she is nervous distress. She has evidence of a 4/5 left dorsiflexion extensor hallucis longus compared to a 5 or 5 on the right. There is tension signs straight leg raising on the left. There is sensory deficits on the left compared to the right. Results & Data ([facility]) Vital Signs (Past 12 Hours) Vital Signs Temp Pulse Resp BP Pulse Ox 04/01/20 07:29 36.9 C 59 L 18 132/71 94
--- NOTE | 2020-04-01 17:41 | XCELERA ---
[id number]
[2020-04-02] MEDS: OXYCODONE HCL IR 5 MG TAB (IMMEDIATE RELEASE) PO PRN ×3 (00:43→15:17)
[2020-04-02] MEDS: LACTATED RINGER'S 1,000 ML IV SCH ×4 (00:47→21:33)
--- NOTE | 2020-04-02 01:51 | Billing Data ---
Date of Service April 02, 2020 Coding Level of Care Code 61035 Initial Inpt Care Lvl 3
[2020-04-02] MEDS: HYDROmorphone INJ 1 MG/ML SYRINGE IV PRN ×3 (05:22→13:44)
[2020-04-02] MEDS: LEVOTHYROXINE SODIUM 75 MCG TABLET PO SCH (05:22)
[2020-04-02] MEDS ORDERED: CLINDAMYCIN 600 MG/54 ML BAG IV SCH (06:00)
[2020-04-02] MEDS: POLYETHYLENE (MIRALAX) 17 GM PACK PO SCH (07:42)
[2020-04-02] MEDS: LOSARTAN POTASSIUM 50 MG TAB PO SCH (07:43)
[2020-04-02] MEDS: LIDOCAINE 5% 1 PATCH TD SCH (07:45)
[2020-04-02] MEDS: DICLOFENAC SOD 1% GEL 100 GM TUBE EXT SCH ×2 (07:45→20:30)
--- NOTE | 2020-04-02 07:49 | Electrocardiogram Report ---
Test Reason : Blood Pressure : / mmHG Vent. Rate : 108 BPM Atrial Rate : 108 BPM P-R Int : 176 ms QRS Dur : 102 ms QT Int : 358 ms P-R-T Axes : 066 033 019 degrees QTc Int : [address] depression in Anterolateral leads , consider ischemia Abnormal ECG No previous ECGs available Confirmed by Bay Lambert ([id number]) on 04/02/2020 7:49:41 AM Referred By: REFERRED SELF Confirmed By:Bay Lambert
[2020-04-02 08:36] LABS: Hematocrit (blood only) 36.7 % (37-47); Hemoglobin 11.6 g/dL (12.0-16.0); Immature Granulocytes # (auto) 0.03 K/uL (0.00-0.02); Immature Granulocytes % (auto) 0.3 %; Lymphocytes # (auto) 1.71 K/uL (1.2-3.4); Lymphocytes % (auto) 16.2 %; Mean Corpuscular Hemoglobin 28.7 pg (25-34); Mean Corpuscular Hgb Conc 31.6 g/dL (32-36); Mean Corpuscular Volume 90.8 fL (80-100); Mean Platelet Volume 10.8 fL (7.4-10.4); Monocytes # (auto) 0.66 K/uL (0.11-0.59); Monocytes % (auto) 6.2 %; Neutrophils # (auto) 8.18 K/uL (1.4-6.5); Neutrophils % (auto) 77.3 %; Platelet Count 189 K/uL (130-400); RDW Coefficient of Variation 13.6 % (11.5-14.5); RDW Standard Deviation 44.6 fL (36.4-46.3); Red Blood Count 4.04 M/uL (4.2-5.4); White Blood Count 10.58 K/uL (4.8-10.8)
[2020-04-02 08:45] LABS: Partial Thromboplastin Ratio 0.8; Partial Thromboplastin Time 22.3 Seconds (21.0-31.0); Prothrombin Time 10.9 Seconds (9.0-12.0)
[2020-04-02 09:30] LABS: BUN Creatinine Ratio 31.2 (10-20); Creatinine Clr Calc Pharmacy 60.7 ml/min; Est GFR (African American) 60.8; Est GFR (Non-African American) 52.5; Potassium 3.8 mmol/L (3.5-5.1)
--- NOTE | 2020-04-02 10:11 | Anesthesiology Consultation ---
Date of Service April 02, 2020 History Surgery Operation Date: 04/02/20 07:00 Proposed Procedures p L4-L5 Decompression and Fusion, Spinal Cord Monitoring - Anjum Hinton DO Height/Weight Height: 5 ft 4 in Weight: 110 kg Allergies Allergy/AdvReac Type Severity Reaction Status Date / Time Penicillins Allergy Rash Unverified 03/31/20 18:39 codeine AdvReac N/V Unverified 03/31/20 18:39 Medications Home Medications Medication Instructions Recorded Confirmed Last Taken ibuprofen 400 mg PO BID PRN 03/31/20 03/31/20 Unknown levothyroxine 75 mcg PO QAM 03/31/20 03/31/20 Unknown losartan 50 mg PO DAILY 03/31/20 03/31/20 Unknown red yeast rice 2,400 mg PO DAILY 03/31/20 03/31/20 Unknown Active Medications Generic Name Dose Route Start Last Admin Trade Name Freq PRN Reason Stop Dose Admin Cyclobenzaprine HCl 5 mg 04/01/20 09:18 04/01/20 12:39 Flexeril PO 05/01/20 13:59 5 mg TID PRN Administration spasm Diclofenac Sodium 4 gm 03/31/20 23:00 04/02/20 07:45 Voltaren 1% Top EXT 04/30/20 22:59 4 gm BID ARMEN Administration Hydromorphone HCl 1 mg 04/01/20 15:01 04/02/20 09:34 Dilaudid IV 04/15/20 15:00 1 mg Q4 PRN Administration SEVERE PAIN Lactated Ringer's 1,000 mls @ 100 mls/hr 03/31/20 22:05 04/02/20 00:47 Lr IV 04/30/20 22:04 100 mls/hr .Q10H ARMEN Administration Levothyroxine Sodium 75 mcg 04/01/20 06:30 04/02/20 05:22 Synthroid PO 05/01/20 06:29 75 mcg DAILYBB ARMEN Administration Lidocaine 1 patch 04/01/20 09:00 04/02/20 07:45 Lidoderm 5% TD 05/01/20 08:59 1 patch QAM ARMEN Administration Losartan Potassium 50 mg 04/01/20 09:00 04/02/20 07:43 Cozaar PO 05/01/20 08:59 50 mg DAILY ARMEN Administration Miscellaneous 1 ea 04/01/20 21:00 04/01/20 21:00 Remove Lidoderm Patch N/A 05/01/20 20:59 Not Given DAILY@2100 ARMEN Oxycodone HCl 5 mg 04/01/20 09:18 04/02/20 07:43 Roxicodone Immediate Rel PO 04/15/20 09:17 5 mg Q6 PRN Administration Pain Polyethylene Glycol 17 gm 04/01/20 09:00 04/02/20 07:42 Miralax Powder Packet PO 05/01/20 08:59 Not Given DAILY ARMEN NPO Date Last Intake of Fluids: 04/02/20 Time Last Intake of Fluids: 07:56 Last Intake of Fluids Comment: sip with medications. Date Last Intake of Solids: 04/02/20 Time Last Intake of Solids: 00:00 Past Medical History Medical History (Updated 04/02/20 @ 10:11 by Pedro Sena MD) ROSE (acute kidney injury) resolved with IV fluid therapy. Hypertension Hypothyroidism Murmur Obesity Social History Smoking Status: Never smoker Hx Alcohol Use: No Hx Substance Use: No Physical Exam Vital Signs Last Vital Signs Temp 36.6 C 04/02/20 07:30 Pulse 94 H 04/02/20 07:30 Resp 16 04/02/20 07:30 BP 173/90 H 04/02/20 07:30 Pulse Ox 100 04/02/20 07:30 Testing Laboratory Results 04/02/20 08:20 04/02/20 08:20 PT 10.9 Seconds (9.0-12.0) 04/02/20 08:20 INR 1.0 (0.9-1.1) 04/02/20 08:20 APTT 22.3 Seconds (21.0-31.0) 04/02/20 08:20 Urine Color Yellow 03/31/20 18:20 Urine Appearance Clear (Clear) 03/31/20 18:20 Urine pH 5.0 (4.5-7.5) 03/31/20 18:20 Ur Specific [place] 1.026 (1.000-1.030) 03/31/20 18:20 Urine Protein Negative (Negative) 03/31/20 18:20 Urine Glucose (UA) Negative (Negative) 03/31/20 18:20 Urine Ketones Trace (Negative) H 03/31/20 18:20 Urine Nitrite Negative (Negative) 03/31/20 18:20 Ur Leukocyte Esterase Negative (Negative) 03/31/20 18:20 Electrocardiogram Date: 04/01/20 Findings: + ST @ (108) Sinus tachycardia ST depression in Anterolateral leads , consider ischemia Abnormal ECG No previous ECGs available Confirmed by Bay Lambert ([id number]) on 04/02/2020 7:49:41 AM Echocardiogram Date: 04/01/20 LV normal in size LV hyperdynamic EF > 70% LV wall motion is normal Grade 1 DD LV outflow tract and aortic velocities were moderately elevated with an asymmetric waveform, consistent with a moderate to severe dynamic left ventricul ar outflow tract obstruction.
--- NOTE | 2020-04-02 10:37 | Hospitalist Progress Note ---
Date of Service April 02, 2020 Assessment & Plan (1) Lower back pain: Pooja Estes is a 65 year old woman who presents for evaluation after fall and worsening 10/10 back pain, found ot have lumbar HNP L1-2 and 4-5 and with L4-5 radiculopathy Back Pain/Thecal sac compression Lumbar spine, radiating down left leg with weakness and numbness, severe pain MRI showing disc herniation with thecal sac compression, Left central L1-2 HNP with mild-mod left neuroforaminal narrowing and L4-5 HNP broad based disc bulge Mild urinary symptoms, without saddle area anesthesia, anal laxity or other red flag symptoms 10 mg decadron + 6 mg q6h x 3 more doses given -continues on IV dilaudid which is helping somewhat Seen by Dr. Hinton who can offer decompression and pt is willing to do so -continue Dilaudid 1mg IV q4h prn, continue tylenol, lidocaine patches voltaren gel, oxycodone Pain management consult appreciated Acute hypoxemic respiratory Failure-resolved Likely secondary to large doses of narcotics given in ED Will keep close eye on O2 sats so as not to suppress her respiratory drive Acute kidney Injury Creatinine elevated to 1.74 on admission and now normalized with IVFs Likely secondary to dehydration as patient tells me PO intake has been poor Hypothyroidism Continue home dose of levothyroxine Hypertension Continue home losartan Heart murmur--> Holosystolic, with +S2--> checked ECHO which shows mod-severe LVOT obstruction, can't visualize AV well ECG with anterolat ST depressions She has no angina or issues with exercise capacity, can achieve at least 4 METS -will place Cardiology consult for further expertise on if optimized for surgery from cardiac standpoint -continue IVFs and increase to 100mL/hr for hyperdynamic EF and for suspected hypovolemia which may be making heart murmur worse -repeat ECG now -check troponin Dispo: continued stay Med surg , awaiting Ortho spine surgery Full Code (2) Spondylolisthesis of lumbar region: (3) ROSE (acute kidney injury): (4) Lumbar disc herniation: (5) Fall: (6) Hypokalemia: (7) Acute hypoxemic respiratory failure: (8) Hypertension: (9) Hypothyroidism: (10) Murmur: (11) Abnormal ECG: Admission and Anticipated Discharge Date Admission Date: March 31, 2020 Subjective Pt continues to have severe pain in lower back radiating down leg, but is better controlled with the higher dose of IV dilaudid Denies any chest pain or SOB. SHe is OOB to the BR with assistance but causes severe pain I discussed her case with Cardiology given the ECHO findings and minor ECG abnormalities Review of Systems Review of Systems: All systems reviewed & are unremarkable except as noted in HPI & below Physical Exam Constitutional: WD/WN, vitals as above + obese Eyes: + anicteric sclerae Neck: trachea midline, no thyromegaly Respiratory: normal respiratory effort, lungs clear to auscultation Cardiovascular: Rate/Rhythm: regular rhythm and + tachycardic Heart Sounds: normal S2 and + murmur (3/6 systolic murmur heard throughout) Vessels: no JVD Extremities: + edema (trace edema legs bilat); no calf tenderness Chest (Breasts): Chest: normal inspection of chest Gastrointestinal (Abdomen): normal bowel sounds, soft, nontender, no hepatosplenomegaly Musculoskeletal: Extremities: extremities normal to inspection; no cyanosis and no clubbing Skin: no rashes, warm and dry Neurologic: awake Psychiatric: A+Ox3, euthymic affect Lymphatic: no lymphedema Results & Data Results & Data ([facility]) Vital Signs (Past 12 Hours) Vital Signs Temp Pulse Resp BP Pulse Ox 04/02/20 07:30 36.6 C 94 H 16 173/90 H 100 04/01/20 23:18 36.9 C 98 H 16 146/75 H 98 Laboratory Results 04/02/20 04/02/20 04/02/20 Range/Units 08:30 08:30 08:20 WBC (4.8-10.8) K/uL RBC (4.2-5.4) M/uL Hgb (12.0-16.0) g/dL Hct (37-47) % MCV (80-100) fL MCH (25-34) pg MCHC (32-36) g/dL RDW Std Deviation (36.4-46.3) fL RDW Coeff of Leia (11.5-14.5) % Plt Count (130-400) K/uL MPV (7.4-10.4) fL Immature Gran % (Auto) % Neut % (Auto) % Lymph % (Auto) % [place] % (Auto) % Eos % (Auto) % Baso % (Auto) % Neut # (Auto) (1.4-6.5) K/uL Lymph # (Auto) (1.2-3.4) K/uL [place] # (Auto) (0.11-0.59) K/uL Eos # (Auto) (0-0.5) K/uL Baso # (Auto) (0-0.2) K/uL Immature Gran # (Auto) (0.00-0.02) K/uL PT (9.0-12.0) Seconds INR (0.9-1.1) APTT (21.0-31.0) Seconds PTT Ratio Sodium 143 (136-145) mmol/L Potassium 3.8 (3.5-5.1) mmol/L Chloride 111 H (98-107) mmol/L Carbon Dioxide 28 (21-32) mmol/L Anion Gap 4.0 (3-11) BUN 34 H (7-18) mg/dl Creatinine 1.09 (0.6-1.2) mg/dl Est Cr Clr Drug Dosing 60.7 ml/min Est GFR ( Amer) 60.8 Est GFR (Non-Af Amer) 52.5 BUN/Creatinine Ratio 31.2 H (10-20) Glucose 103 H (70-99) mg/dl Calcium 10.0 (8.5-10.1) mg/dl COVID-19 PCR Pending SARS-CoV-2 RNA (RT-PCR) Cancelled 04/02/20 04/02/20 Range/Units 08:20 08:20 WBC 10.58 (4.8-10.8) K/uL RBC 4.04 L (4.2-5.4) M/uL Hgb 11.6 L (12.0-16.0) g/dL Hct 36.7 L (37-47) % MCV 90.8 (80-100) fL MCH 28.7 (25-34) pg MCHC 31.6 L (32-36) g/dL RDW Std Deviation 44.6 (36.4-46.3) fL RDW Coeff of Leia 13.6 (11.5-14.5) % Plt Count 189 (130-400) K/uL MPV 10.8 H (7.4-10.4) fL Immature Gran % (Auto) 0.3 % Neut % (Auto) 77.3 % Lymph % (Auto) 16.2 % [place] % (Auto) 6.2 % Eos % (Auto) 0.0 % Baso % (Auto) 0.0 % Neut # (Auto) 8.18 H (1.4-6.5) K/uL Lymph # (Auto) 1.71 (1.2-3.4) K/uL [place] # (Auto) 0.66 H (0.11-0.59) K/uL Eos # (Auto) 0.00 (0-0.5) K/uL Baso # (Auto) 0.00 (0-0.2) K/uL Immature Gran # (Auto) 0.03 H (0.00-0.02) K/uL PT 10.9 (9.0-12.0) Seconds INR 1.0 (0.9-1.1) APTT 22.3 (21.0-31.0) Seconds PTT Ratio 0.8 Sodium (136-145) mmol/L Potassium (3.5-5.1) mmol/L Chloride (98-107) mmol/L Carbon Dioxide (21-32) mmol/L Anion Gap (3-11) BUN (7-18) mg/dl Creatinine (0.6-1.2) mg/dl Est Cr Clr Drug Dosing ml/min Est GFR ( Amer) Est GFR (Non-Af Amer) BUN/Creatinine Ratio (10-20) Glucose (70-99) mg/dl Calcium (8.5-10.1) mg/dl COVID-19 PCR SARS-CoV-2 RNA (RT-PCR) ECG Additional Comments: Sinus tach with anterolateral ST depressions PG Care Time/CCT Total # of Minutes Spent Total Time Spent with Patient: Total time spent is greater than 50% in coordination of care (as documented) at patient's floor/unit and/or counseling patient: Coding Level of Care Code 75826 Subseq Hosp Care Lvl 3 Diagnoses Lower back pain M54.42; M54.41 Back pain laterality: midline Chronicity: acute Sciatica laterality: bilateral sciatica Sciatica presence: with sciatica Spondylolisthesis of lumbar region M43.16 ROSE (acute kidney injury) N17.9 Lumbar disc herniation M51.26 Fall W19.XXXA Encounter type: initial encounter Hypokalemia E87.6 Acute hypoxemic respiratory failure J96.01 Hypertension I10 Hypothyroidism E03.9 Murmur R01.1 Abnormal ECG R94.31 (1) Lower back pain Back pain laterality: midline Chronicity: acute Sciatica laterality: bilateral sciatica Sciatica presence: with sciatica Qualified Code(s): M54.42 - Lumbago with sciatica, left side; M54.41 - Lumbago with sciatica, right side (2) Fall Encounter type: initial encounter Qualified Code(s): W19.XXXA - Unspecified fall, initial encounter
--- NOTE | 2020-04-02 12:06 | Electrocardiogram Report ---
Test Reason : Blood Pressure : / mmHG Vent. Rate : 081 BPM Atrial Rate : 081 BPM P-R Int : 146 ms QRS Dur : 096 ms QT Int : 374 ms P-R-T Axes : 052 027 -26 degrees QTc Int : 434 ms Normal sinus rhythm Minor Nonspecific ST abnormality Anterolateral leads Abnormal ECG When compared with ECG of 01-APR-2020 15:54, ST depression in Anterolateral leads no longer present Confirmed by Bay Lambert ([id number]) on 04/02/2020 12:05:45 PM Referred By: REFERRED SELF Confirmed By:Bay Lambert
--- NOTE | 2020-04-02 13:21 | Cardiology Consultation ---
Date of Consultation April 02, 2020 Assessment & Plan (1) Dynamic left ventricular outflow obstruction: Moderate to severe dynamic left ventricular outflow tract obstruction noted on echocardiogram yesterday, likely secondary to hyperdynamic ventricle in the context of volume depletion. Dynamic obstruction completely resolved on echocardiogram today, after she received IV fluids overnight. (2) Moderate aortic stenosis: Additional echocardiographic views today showed moderate but noncritical aortic stenosis. This can be followed as an outpatient, should not be hemodynamically significant enough to have a clinical impact on her surgery. (3) Elevated troponin: Given her very good exercise tolerance at baseline and lack of cardiopulmonary symptoms she is very unlikely to have obstructive coronary artery disease, suspect that her troponin elevation was due to the hyperdynamic state with outflow tract obstruction and moderate aortic stenosis (supply/demand mismatch). There are no wall motion abnormalities on her current echocardiogram and systolic function is normal. Okay to proceed to back surgery. (4) Abnormal ECG: She appears to have anterolateral ST abnormalities at baseline, which were mildly exaggerated during the physiologic stress of her volume depleted state. The dynamic component of her ST changes was most likely due to some suppl y/demand transient ischemia due to tachycardia, dynamic left ventricular outflow tract obstruction with hyperdynamic LV function, and moderate aortic stenosis. (5) Lumbar disc herniation: Operative repair planned, appropriate to proceed with surgery while monitoring hemodynamics and avoiding volume depletion. (6) Hypertension: In the context of significant pain. Mainstay of treatment is pain management, would avoid vasodilators with her tendency to hyperdynamic state/dynamic left ventricular outflow tract obstruction. Continue losartan. Could utilize IV metoprolol or diltiazem for any acute hypertension, particularly if associated with tachycardia. History of Present Illness Reason for Consultation: LV outflow obstruction,abnormal ECG,pre-op assessment Requesting Physician: Aaliyah Willett MD Attending Physician: Aaliyah Willett MD History of Present Illness 65-year-old woman with minor medical problems and no known cardiac history admitted 03/31/2020 with lumbar disc herniation for which operative repair is planned (possibly later today), preop evaluation showed abnormal echocardiogram and ECG. At baseline, she is physically active, able to walk up stairs with laundry and do other household activities with no dyspnea, chest discomfort, or lightheadedness. She denies any leg edema, orthopnea, PND, palpitations, presyncope, or syncope. Presently, she is comfortable at rest, but has severe back pain with any attempts to mobilize/ambulate. Allergies Allergy/AdvReac Type Severity Reaction Status Date / Time Penicillins Allergy Rash Unverified 03/31/20 18:39 codeine AdvReac N/V Unverified 03/31/20 18:39 Home Medications Home Medications Medication Instructions Recorded Confirmed Type ibuprofen 400 mg PO BID PRN 03/31/20 03/31/20 History levothyroxine 75 mcg PO QAM 03/31/20 03/31/20 History losartan 50 mg PO DAILY 03/31/20 03/31/20 History red yeast rice 2,400 mg PO DAILY 03/31/20 03/31/20 History Patient History Medical History ROSE (acute kidney injury) resolved with IV fluid therapy. Hypertension Hypothyroidism Murmur Obesity Social History Preferred Language: Slovenian Communication Ability: Effective Post Anesthesia Care Unit Nurse Required: No Beliefs That Will Affect Care: None Current Living Situation: Spouse Feels Safe at Home: Yes Smoking Status: Never smoker Hx Alcohol Use: No Hx Substance Use: No Review of Systems Constitutional: no fever, no chills, no fatigue, no weight loss and no weight gain Eyes: no problem reported Ear, Nose, Mouth, Throat: no problem reported Respiratory: no cough and no dyspnea Cardiovascular: as per Subjective / HPI Gastrointestinal: no abdominal pain and no change in stools Genitourinary: no problem reported Musculoskeletal: as per Subjective / HPI; no myalgia Integumentary: no rash and no new lesions Neurologic: + falls; no syncope Psychiatric: no problem reported Hematologic / Lymphatic: no easy bleeding and no easy bruising Physical Exam Physical Exam: Middle-aged white female in no distress. Afebrile. Normotensive to mildly hypertensive. Borderline tachycardia. Normal respiratory rate. Skin: No generalized lesions. HEENT: Unremarkable. Neck: No JVD or carotid bruits. His lungs: Clear and equal breath sounds bilaterally. Cardiac: Regular rhythm with 3/6 crescendo decrescendo systolic ejection murmur at the right upper sternal border rating to the carotids, left sternal border, and apex. Aortic closure sound is audible but moderately reduced. No diastolic murmur or gallop. Abdomen: Soft nontender. Extremities: No edema, peripheral pulses intact. Neurologic: Normal affect and conversation, grossly nonfocal at rest. Results & Data ([facility]) Vital Signs (Past 12 Hours) Vital Signs Temp Pulse Resp BP Pulse Ox 04/02/20 07:30 97.9 F 94 H 16 173/90 H 100 Diagnostic Findings Echocardiogram yesterday was technically difficult and showed hyperdynamic left ventricle (EF in the 90% range) with no wall motion abnormalities and dynamic left ventricular outflow tract obstruction with moderate pulmonary hypertension as well as reduced inferior vena caval diameter suggesting reduced central venous pressure. Findings were consistent with a volume depleted state. Limited repeat echo today under my supervision showed resolution of the hyperdynamic state, systolic function was now normal (EF 65%), no wall motion abnormalities. Additional views showed that moderate aortic stenosis was present but this was noncritical. ECG yesterday showed sinus tachycardia at 108 bpm with 1 mm of horizontal anterolateral ST depression. No prior studies. ECG today showed sinus rhythm at 81 bpm, there was still minor upsloping ST depression in the anterolateral leads, improved compared with yesterday. Troponin value today was 0.619. PG Care Time/CCT Total # of Minutes Spent Total Time Spent with Patient: Total time spent is greater than 50% in coordination of care (as documented) at patient's floor/unit and/or counseling patient: Coding Level of Care Code 37363 Initial Inpt Care Lvl 3 Diagnoses Dynamic left ventricular outflow obstruction I51.89 Moderate aortic stenosis I35.0 Elevated troponin R79.89 Abnormal ECG R94.31 Lumbar disc herniation M51.26 Hypertension I10
--- NOTE | 2020-04-02 14:12 | XCELERA ---
[id number]
[2020-04-02] MEDS ORDERED: MIDAZOLAM HCL 1 MG/ML 2ML VIAL ONE (16:24)
[2020-04-02] MEDS ORDERED: fentaNYL citrate 100 MCG/2 ML VIAL ONE (16:24)
--- NOTE | 2020-04-02 16:48 | History & Physical Bridge Note ---
Date of Service April 02, 2020 History & Physical Bridge Note I have examined the patient, reviewed the History & Physical and in the interval since the performance of the History & Physical I have noted the following changes of clinical significance: no changes noted
[2020-04-02] MEDS ORDERED: CLINDAMYCIN 600 MG/54 ML D5W IV ONE (16:58)
[2020-04-02] MEDS ORDERED: BUPIVACAINE 0.5 % 5 MG/1 ML MPF 30ML VIAL ONE (17:08)
[2020-04-02] MEDS ORDERED: ONDANSETRON INJ 2 MG/ML 2 ML VIAL IV PRN ×2 (17:09→20:29)
[2020-04-02] MEDS ORDERED: EPINEPHrine INJ 1 MG/ML AMP ONE (17:09)
[2020-04-02] MEDS ORDERED: METOCLOPRAMIDE HCL INJ 5 MG/ML 2 ML VIAL IV PRN ×2 (17:09→20:29)
[2020-04-02] MEDS ORDERED: PROMETHAZINE HCL 12.5 MG in SODIUM CHLORIDE 0.9% 50 ML IV PRN ×2 (17:09→20:29)
[2020-04-02] MEDS ORDERED: BACITRACIN INJ 50,000 UNIT VIAL ONE (17:09)
[2020-04-02] MEDS ORDERED: HYDROmorphone INJ 2 MG/ML SYR/VIAL IV PRN (17:09)
[2020-04-02] MEDS ORDERED: ATROPINE SULFATE 0.1 MG/ML 10ML SYR IV PRN (17:09)
[2020-04-02] MEDS ORDERED: fentaNYL citrate 100 MCG/2 ML VIAL IV PRN (17:09)
[2020-04-02] MEDS ORDERED: DEXAMETHASONE SOD INJ 4 MG/ML VIAL IV PRN (17:09)
[2020-04-02] MEDS ORDERED: ePHEDrine sulfate 50 MG/ML AMP IV PRN (17:09)
[2020-04-02] MEDS ORDERED: DEXAMETHASONE SOD INJ 4 MG/ML VIAL ONE (17:10)
[2020-04-02] MEDS ORDERED: ONDANSETRON INJ 2 MG/ML 2 ML VIAL ONE ×2 (17:10→18:58)
[2020-04-02] MEDS ORDERED: LIDOCAINE HCL 2% 2 ML VIAL/AMP(20MG/ML) INFIL ONE (17:10)
[2020-04-02] MEDS ORDERED: GLYCOPYRROLATE 0.2 MG/ML VIAL ONE (17:10)
[2020-04-02] MEDS ORDERED: NEOSTIGMINE METHYLSULFATE 1 MG/ML 10ML VIAL ONE (17:10)
[2020-04-02] MEDS ORDERED: PROPOFOL IV EMULSION 10 MG/ML 20 ML VIAL IV ONE (17:10)
[2020-04-02] MEDS ORDERED: ROCURONIUM BROMIDE 10 MG/ML 5 ML VIAL IV ONE (18:16)
[2020-04-02] MEDS ORDERED: HYDROmorphone INJ 2 MG/ML SYR/VIAL ONE (18:16)
[2020-04-02] MEDS ORDERED: FLOSEAL HEMOSTATIC MATRIX 10ML TOP ONE (18:34)
--- NOTE | 2020-04-02 19:06 | Operative Report ---
Post Operative Report Pre & Post Diagnosis Operation Date: 04/02/20 07:00 Pre-Op Diagnosis: Spondylolisthesis L4 -L5 with acute radiculpathy, Left side pain Post-Op Diagnosis: Spondylolisthesis L4 -L5 with acute radiculpathy, left side pain I identified the patient and participated in the time-out.: Yes Procedure Operation Date: 04/02/20 07:00 Actual Procedures #1 lumbar decompression with bilateral medial facetectomy and and foraminotomies L3-4 L4-5 per #2 posterior spinal fusion L4-5 per #3 placement posterior instrumentation L4-5. #4 interbody fusion L4-5. #5 placement peek cage 12 x 26 mm at L4-5. #6 placement of locally harvested morselized autograft in the posterior lateral gutters. #7 placement infuse collagen sponge, master graft in the posterior lateral gutters and ostial amp and interbody space. Surgeon Anjum Hinton, DO Software Development Analyst Fam Webb Estimated Blood Loss 250 Findings See Below The patient is 5 foot 4 inches tall weighing 110 kg with a BMI in excess of 41. The patient's body habitus did add significant technical difficulty requiring her deepest retractors and longest instruments in order to perform her procedure. This added at least 40% increase to the operative time. Specimens None Indications This is a 65-year-old female presents with above-mentioned diagnosis. She was having marked decline in status and ability to ambulate subsequently elected undergo the above-mentioned procedure. Description of Procedure Patient was met with preoperatively case discussed all questions addressed. That point patient was taken back to the operative suite underwent intubation placed in a prone position on the Iam table on top of the Gilmer frame. All bony prominences well-padded eyes inspected to ensure no external pressure placed upon the. This point the lumbar spine was prepped and draped in a normal sterile fashion. Sharp dissection with the assistance of Bovie cautery was performed down to and exposing the lamina and transverse processes of L4 and L5. From caudal cephalad fashion complete laminectomy of L4 partial laminectomy L3 was performed including bilateral medial facetectomies and foraminotomies addressing significant severe stenosis as well as evidence of a herniated free fragment at the L4-5 level on the left. After complete decompression pedicle screws were placed in L4 and L5 bilaterally with assistance of fluoroscopy and appropriately sized ghazala placed. By way of a transforaminal approach on the left complete discectomy was performed endplates curetted to subcortical bleeding bone and a 12 x 26 mm peek cage filled with osteo-bone graft tapped in position. The rods were then locked into final position bilaterally. The transverse processes of L4 and L5 bur to subcortical bleeding bone. Infuse collagen sponge master graft local autograft was placed in the posterior lateral gutters. 15 round PETTY drain inserted. Incision was then closed with 1 Vicryl the fascia 2-0 Vicryl subcutaneously and 4 Monocryl for final skin closure. Steri-Strip sterile dressings placed. Patient will continue to PACU stable condition. Please note Fam record was present at the entire procedure involved the patient positioning complex portions of the surgery and final skin closure. Lastly spinal cord monitoring was utilized that the procedure no changes noted. I attest to the content of the Intraoperative Record and any orders documented therein. Any exceptions are noted below.
--- NOTE | 2020-04-02 19:10 | Fluoroscopy Report ---
INTRAOPERATIVE RADIOGRAPHS CLINICAL HISTORY: L4-L5 spinal fusion. Fluoroscopy time: 12 seconds. FINDINGS: 2 spot fluoroscopic views of the lumbar spine are presented. There has been discectomy at L 4-L5 with laminectomy and posterior fusion at this level. Interpedicular screws are in place. The ort hopedic hardware appears intact. IMPRESSION: Intraoperative images from L4-L5 spinal fusion as above. Electronically signed by: Gunnar Figueroa M.D. 04/02/2020 7:08 PM
[2020-04-02] MEDS ORDERED: PHENYLEPHRINE 100MCG/ML 5ML SYR ONE (19:29)
--- NOTE | 2020-04-02 20:22 | Anesthesiology Progress Note ---
Date of Service April 02, 2020 Anesthesia Post Procedure Vital Signs Vital Signs: Temp Pulse Pulse Resp BP Pulse Ox 04/02/20 19:50 37.1 C 88 16 144/80 H 96 04/02/20 19:40 98 H 16 175/76 H 98 04/02/20 19:30 92 H 16 152/69 H 94 04/02/20 19:23 37.6 C H 88 16 155/69 H 98 04/02/20 16:59 37 C 94 H 20 203/90 H 95 04/02/20 15:30 36.8 C 86 17 146/71 H 100 04/02/20 07:30 36.6 C 94 H 16 173/90 H 100 04/01/20 23:18 36.9 C 98 H 16 146/75 H 98 Pain Intensity Back: Pain Intensity: 5 Transfer of Care Handoff Completed per policy Notes Mental Status: alert / awake / arousable and participated in evaluation Patient Amnestic to Procedure: Yes Nausea / Vomiting: adequately controlled Pain: adequately controlled Airway Patency, RR, SpO2: stable & adequate BP & HR: stable & adequate Hydration State: stable & adequate Anesthetic Complications: no major complications apparent
[2020-04-02] MEDS ORDERED: NALOXONE HCL 0.4 MG/1 ML VIAL/CARP IV PRN (20:29)
[2020-04-02] MEDS ORDERED: LORazepam 0.5 MG TAB PO PRN (20:29)
[2020-04-02] MEDS ORDERED: ACETAMINOPHEN 500 MG TAB PO PRN (20:29)
[2020-04-02] MEDS ORDERED: ACETAMINOPHEN 1,000 MG/100 ML VIAL IV PRN (20:29)
[2020-04-02] MEDS ORDERED: HYDROmorphone INJ 0.5 MG/0.5 ML SYR IV PRN (20:29)
[2020-04-02] MEDS ORDERED: DO NOT ADMINISTER FLU VACCINE PRN (20:29)
[2020-04-02] MEDS ORDERED: ALUMINUM/MAGNESIUM SUSP 30 ML UDC PO PRN (20:29)
[2020-04-02] MEDS ORDERED: DO NOT ADMINISTER PNEUMOCOCCAL VACCINE PRN (20:29)
[2020-04-02] MEDS ORDERED: HYDROmorphone INJ 1 MG/ML SYRINGE IV PRN (20:29)
[2020-04-02] MEDS ORDERED: FAMOTIDINE 20 MG TAB PO PRN (20:29)
[2020-04-02] MEDS ORDERED: SOD PHOSPHATE/SOD BIPHOSPHATE ENEMA 132 ML BTL PR PRN (20:29)
[2020-04-02] MEDS ORDERED: TRAMADOL HCL 50 MG TABLET PO PRN (20:29)
[2020-04-02] MEDS ORDERED: bisacodyL 10 MG SUPP PR PRN (20:29)
[2020-04-02] MEDS ORDERED: ONDANSETRON 4 MG OD TAB PO PRN (20:29)
[2020-04-02] MEDS ORDERED: MAGNESIUM HYDROXIDE SUSP 30 ML UDC PO PRN (20:29)
[2020-04-02] MEDS ORDERED: LORazepam 0.5 MG/1 ML VIAL IV PRN (20:29)
[2020-04-02] MEDS: SODIUM CHLORIDE 0.9% 1000ML 1,000 ML IV SCH (20:36)
[2020-04-02] MEDS: DOCUSATE SODIUM/SENNA 50/8.6MG TAB PO SCH (22:08)
[2020-04-03] MEDS: CLINDAMYCIN 600 MG in DEXTROSE 5% 50 ML IV SCH ×2 (02:21→10:15)
[2020-04-03] MEDS: SODIUM CHLORIDE 0.9% 1000ML 1,000 ML IV SCH ×2 (02:32→10:09)
[2020-04-03] MEDS: LACTATED RINGER'S 1,000 ML IV SCH (05:46)
[2020-04-03] MEDS: LEVOTHYROXINE SODIUM 75 MCG TABLET PO SCH (05:51)
[2020-04-03] MEDS: POLYETHYLENE (MIRALAX) 17 GM PACK PO SCH ×5 (05:52→23:15)
[2020-04-03 07:00] LABS: Hematocrit (blood only) 31.2 % (37-47); Hemoglobin 9.9 g/dL (12.0-16.0); Immature Granulocytes # (auto) 0.03 K/uL (0.00-0.02); Immature Granulocytes % (auto) 0.3 %; Lymphocytes # (auto) 0.99 K/uL (1.2-3.4); Lymphocytes % (auto) 10.2 %; Mean Corpuscular Hemoglobin 28.8 pg (25-34); Mean Corpuscular Hgb Conc 31.7 g/dL (32-36); Mean Corpuscular Volume 90.7 fL (80-100); Mean Platelet Volume 10.7 fL (7.4-10.4); Monocytes # (auto) 0.58 K/uL (0.11-0.59); Neutrophils # (auto) 8.07 K/uL (1.4-6.5); Neutrophils % (auto) 83.5 %; Platelet Count 162 K/uL (130-400); RDW Coefficient of Variation 13.5 % (11.5-14.5); RDW Standard Deviation 44.9 fL (36.4-46.3); Red Blood Count 3.44 M/uL (4.2-5.4); White Blood Count 9.67 K/uL (4.8-10.8)
[2020-04-03 07:26] LABS: BUN Creatinine Ratio 29.4 (10-20); Calcium 8.8 mg/dl (8.5-10.1); Creatinine Clr Calc Pharmacy 73.6 ml/min; Est GFR (African American) 76.7; Est GFR (Non-African American) 66.2; Potassium 3.9 mmol/L (3.5-5.1)
[2020-04-03] MEDS: LOSARTAN POTASSIUM 50 MG TAB PO SCH (09:00)
[2020-04-03] MEDS: DICLOFENAC SOD 1% GEL 100 GM TUBE EXT SCH ×3 (09:01→20:02)
[2020-04-03] MEDS: LIDOCAINE 5% 1 PATCH TD SCH (09:04)
[2020-04-03] MEDS: OXYCODONE HCL IR 5 MG TAB (IMMEDIATE RELEASE) PO PRN (09:30)
--- NOTE | 2020-04-03 10:26 | Orthopedic Progress Note ---
Date of Service April 03, 2020 Assessment & Plan (1) Lumbar disc herniation: At this time initiate physical therapy monitor her PETTY output hopefully discharge home the next few days. Present on Admission?: Yes Admission and Anticipated Discharge Date Admission Date: March 31, 2020 Subjective Back pain is controlled leg symptoms markedly improved. Physical Exam Physical Exam: Patient has good strength testing appears comfortable. Results & Data ([facility]) Vital Signs (Past 12 Hours) Vital Signs Temp Pulse Resp BP Pulse Ox 04/03/20 07:37 36.5 C 84 16 139/68 97 04/03/20 03:05 36.8 C 90 16 152/75 H 98 04/02/20 23:10 36.7 C 96 H 16 137/68 97
[2020-04-03] MEDS: DEXAMETHASONE SOD PHOSPHATE 8 MG in SYRINGE 0 ML IV SCH (11:44)
--- NOTE | 2020-04-03 12:18 | Hospitalist Progress Note ---
Date of Service April 03, 2020 Assessment & Plan (1) Lower back pain: Pooja Estes is a 65 year old woman who presents for evaluation after fall and worsening 10/10 back pain, found ot have lumbar HNP L1-2 and 4-5 and with L4-5 radiculopathy Back Pain/Thecal sac compression/lumbar radiculopathy with HNP Lumbar spine, radiating down left leg with weakness and numbness, severe pain MRI showing disc herniation with thecal sac compression, Left central L1-2 HNP with mild-mod left neuroforaminal narrowing and L4-5 HNP broad based disc bulge Mild urinary symptoms, without saddle area anesthesia, anal laxity or other red flag symptoms 10 mg decadron + 6 mg q6h x 3 more doses given -Now status post lumbar decompression and fusion on 04/02 Symptoms are significantly improved -Appreciate orthopedic spine surgery management for postoperative care -Continue pain control, dexamethasone -Okeefe catheter in place PETTY drain in place (2) Spondylolisthesis of lumbar region: As above (3) Lumbar disc herniation: As above (4) ROSE (acute kidney injury): Creatinine elevated to 1.74 on admission and now normalized with IVFs Likely secondary to dehydration as patient tells me PO intake has been poor when she had the severe pain -Follow BMP (5) Fall: The cause of her H&P (6) Hypokalemia: Potassium was replaced and is now normalized (7) Acute hypoxemic respiratory failure: -resolved Likely secondary to large doses of narcotics given in ED Will keep close eye on O2 sats so as not to suppress her respiratory drive (8) Hypertension: Blood pressures are controlled -Continue home losartan (9) Aortic stenosis: Heart murmur found on admission--> Holosystolic, with +S2--> checked ECHO which shows mod-severe LVOT obstruction, can't visualize AV well initially Was hydrated overnight and tachycardia and hydration status improved Repeat limited echo shows moderate aortic stenosis and resolution of LVOT obstruction with preserved EF She is completely asymptomatic prior to admission with her aortic stenosis ECG with anterolat ST depressions which improved somewhat after hydration- cardiology thinks secondary to hyperdynamic state in the setting of LVOT Troponin mildly elevated at 0.6 was myocardial demand ischemia/supply demand mismatch-no need for ischemic evaluation -Continue to follow with cardiology as an outpatient after discharge (10) Hypothyroidism: Continue home dose levothyroxine (11) Abnormal ECG: As noted above (12) Acute blood loss anemia: Hemoglobin down to 9.9 from 11.6 status post surgery Hemodynamically stable -Follow CBC in the morning (13) DVT prophylaxis: SCDs Avoid chemical prophylaxis due to spinal surgery Disposition-remain on medical/surgical Admission and Anticipated Discharge Date Admission Date: March 31, 2020 Subjective Feeling significantly improved with the pain in her left lower extremity since her surgery yesterday. She underwent lumbar decompression fusion. Denies any chest pain or shortness of breath, no nausea or vomiting. She is feeling gas passing but no bowel movement today. Still has O[place] catheter in place. Is very grateful for having the surgery and appreciative of all the care. Review of Systems Review of Systems: All systems reviewed & are unremarkable except as noted in HPI & below Physical Exam Constitutional: WD/WN, vitals as above + obese Eyes: + anicteric sclerae Neck: trachea midline, no thyromegaly Respiratory: normal respiratory effort, lungs clear to auscultation Cardiovascular: Rate/Rhythm: regular rhythm and + tachycardic Heart Sounds: normal S2 and + murmur (3/6 systolic murmur heard throughout) Vessels: no JVD Extremities: + edema (trace edema legs bilat); no calf tenderness Chest (Breasts): Chest: normal inspection of chest Gastrointestinal (Abdomen): normal bowel sounds, soft, nontender, no hepatosplenomegaly Musculoskeletal: Extremities: extremities normal to inspection; no cyanosis and no clubbing Skin: no rashes, warm and dry Neurologic: awake Psychiatric: A+Ox3, euthymic affect Genitourinary: Okeefe catheter in place draining clear yellow urine Lymphatic: no lymphedema Results & Data Results & Data ([facility]) Vital Signs (Past 12 Hours) Vital Signs Temp Pulse Resp BP Pulse Ox 04/03/20 07:37 36.5 C 84 16 139/68 97 04/03/20 03:05 36.8 C 90 16 152/75 H 98 Laboratory Results 04/03/20 04/03/20 Range/Units 06:41 06:41 WBC 9.67 (4.8-10.8) K/uL RBC 3.44 L (4.2-5.4) M/uL Hgb 9.9 L (12.0-16.0) g/dL Hct 31.2 L (37-47) % MCV 90.7 (80-100) fL MCH 28.8 (25-34) pg MCHC 31.7 L (32-36) g/dL RDW Std Deviation 44.9 (36.4-46.3) fL RDW Coeff of Leia 13.5 (11.5-14.5) % Plt Count 162 (130-400) K/uL MPV 10.7 H (7.4-10.4) fL Immature Gran % (Auto) 0.3 % Neut % (Auto) 83.5 % Lymph % (Auto) 10.2 % [place] % (Auto) 6.0 % Eos % (Auto) 0.0 % Baso % (Auto) 0.0 % Neut # (Auto) 8.07 H (1.4-6.5) K/uL Lymph # (Auto) 0.99 L (1.2-3.4) K/uL [place] # (Auto) 0.58 (0.11-0.59) K/uL Eos # (Auto) 0.00 (0-0.5) K/uL Baso # (Auto) 0.00 (0-0.2) K/uL Immature Gran # (Auto) 0.03 H (0.00-0.02) K/uL Sodium 143 (136-145) mmol/L Potassium 3.9 (3.5-5.1) mmol/L Chloride 113 H (98-107) mmol/L Carbon Dioxide 28 (21-32) mmol/L Anion Gap 2.0 L (3-11) BUN 27 H (7-18) mg/dl Creatinine 0.90 (0.6-1.2) mg/dl Est Cr Clr Drug Dosing 73.6 ml/min Est GFR ( Amer) 76.7 Est GFR (Non-Af Amer) 66.2 BUN/Creatinine Ratio 29.4 H (10-20) Glucose 116 H (70-99) mg/dl Calcium 8.8 (8.5-10.1) mg/dl PG Care Time/CCT Total # of Minutes Spent Total Time Spent with Patient: Total time spent is greater than 50% in coordination of care (as documented) at patient's floor/unit and/or counseling patient: Coding Level of Care Code 30003 Subseq Hosp Care Lvl 3 Diagnoses Lower back pain M54.42; M54.41 Back pain laterality: midline Chronicity: acute Sciatica laterality: bilateral sciatica Sciatica presence: with sciatica Spondylolisthesis of lumbar region M43.16 Lumbar disc herniation M51.26 ROSE (acute kidney injury) N17.9 Fall W19.XXXA Encounter type: initial encounter Hypokalemia E87.6 Acute hypoxemic respiratory failure J96.01 Hypertension I10 Aortic stenosis I35.0 Hypothyroidism E03.9 Abnormal ECG R94.31 Acute blood loss anemia D62 DVT prophylaxis Z29.9 (1) Lower back pain Back pain laterality: midline Chronicity: acute Sciatica laterality: bilater al sciatica Sciatica presence: with sciatica Qualified Code(s): M54.42 - Lumbago with sciatica, left side; M54.41 - Lumbago with sciatica, right side (2) Fall Encounter type: initial encounter Qualified Code(s): W19.XXXA - Unspecified fall, initial encounter
[2020-04-03] MEDS: HYDROmorphone INJ 1 MG/ML SYRINGE IV PRN ×2 (15:50→20:06)
[2020-04-03] MEDS: DOCUSATE SODIUM/SENNA 50/8.6MG TAB PO SCH (20:02)
[2020-04-04] MEDS: OXYCODONE HCL IR 5 MG TAB (IMMEDIATE RELEASE) PO PRN ×5 (01:31→19:33)
[2020-04-04] MEDS: POLYETHYLENE (MIRALAX) 17 GM PACK PO SCH ×4 (05:35→17:40)
[2020-04-04] MEDS: LEVOTHYROXINE SODIUM 75 MCG TABLET PO SCH (05:35)
[2020-04-04 06:26] LABS: Eosinophils # (auto) 0.01 K/uL (0-0.5); Eosinophils % (auto) 0.1 %; Hematocrit (blood only) 35.4 % (37-47); Hemoglobin 10.5 g/dL (12.0-16.0); Immature Granulocytes # (auto) 0.02 K/uL (0.00-0.02); Immature Granulocytes % (auto) 0.2 %; Lymphocytes # (auto) 2.02 K/uL (1.2-3.4); Lymphocytes % (auto) 22.1 %; Mean Corpuscular Hemoglobin 27.9 pg (25-34); Mean Corpuscular Hgb Conc 29.7 g/dL (32-36); Mean Corpuscular Volume 93.9 fL (80-100); Monocytes # (auto) 0.49 K/uL (0.11-0.59); Monocytes % (auto) 5.4 %; Neutrophils # (auto) 6.59 K/uL (1.4-6.5); Neutrophils % (auto) 72.2 %; Platelet Count 183 K/uL (130-400); RDW Coefficient of Variation 13.5 % (11.5-14.5); RDW Standard Deviation 46.6 fL (36.4-46.3); Red Blood Count 3.77 M/uL (4.2-5.4); White Blood Count 9.13 K/uL (4.8-10.8)
[2020-04-04 07:01] LABS: BUN Creatinine Ratio 26.3 (10-20); Calcium 9.7 mg/dl (8.5-10.1); Creatinine Clr Calc Pharmacy 66.2 ml/min; Est GFR (African American) 67.5; Est GFR (Non-African American) 58.3
[2020-04-04] MEDS: LIDOCAINE 5% 1 PATCH TD SCH (08:35)
[2020-04-04] MEDS: DICLOFENAC SOD 1% GEL 100 GM TUBE EXT SCH ×2 (08:36→20:14)
[2020-04-04] MEDS: LOSARTAN POTASSIUM 50 MG TAB PO SCH (08:36)
[2020-04-04] MEDS: HYDROmorphone INJ 1 MG/ML SYRINGE IV PRN (08:45)
[2020-04-04] MEDS: DEXAMETHASONE SOD PHOSPHATE 8 MG in SYRINGE 0 ML IV SCH (10:56)
--- NOTE | 2020-04-04 11:20 | Orthopedic Progress Note ---
Date of Service April 04, 2020 Assessment & Plan (1) Spondylolisthesis of lumbar region: This time we will continue physical therapy monitor PETTY output strongly suspect she will be able to discharge home tomorrow. Present on Admission?: Yes Admission and Anticipated Discharge Date Admission Date: March 31, 2020 Subjective Patient's back pain is controlled leg symptoms markedly improved. Physical Exam Physical Exam: Patient is good strength testing appears comfortable. Results & Data ([facility]) Vital Signs (Past 12 Hours) Vital Signs Temp Pulse Resp BP Pulse Ox 04/04/20 07:24 36.7 C 81 16 161/82 H 98
[2020-04-04] MEDS: DOCUSATE SODIUM/SENNA 50/8.6MG TAB PO SCH (20:14)
--- NOTE | 2020-04-04 20:49 | Hospitalist Progress Note ---
Date of Service April 04, 2020 Assessment & Plan (1) Lower back pain: Pooja Estes is a 65 year old woman who presents for evaluation after fall and worsening 10/10 back pain, found ot have lumbar HNP L1-2 and 4-5 and with L4-5 radiculopathy Back Pain/Thecal sac compression/lumbar radiculopathy with HNP Lumbar spine, radiating down left leg with weakness and numbness, severe pain MRI showing disc herniation with thecal sac compression, Left central L1-2 HNP with mild-mod left neuroforaminal narrowing and L4-5 HNP broad based disc bulge Mild urinary symptoms, without saddle area anesthesia, anal laxity or other red flag symptoms 10 mg decadron + 6 mg q6h x 3 more doses given upon admission -Now status post lumbar decompression and fusion on 04/02 Symptoms are significantly improved, pain is better controlled and she has been out of bed and ambulating with PT -Appreciate orthopedic spine surgery management for postoperative care -Continue pain control, dexamethasone once daily PETTY drain remains in place Hemoglobin with slight drop but stable to improved today at 10.5 (2) Spondylolisthesis of lumbar region: As above (3) Lumbar disc herniation: As above (4) ROSE (acute kidney injury): Creatinine elevated to 1.74 on admission and now normalized with IVFs Likely secondary to dehydration as patient tells me PO intake has been poor when she had the severe pain -Follow BMP (5) Fall: The cause of her HNP (6) Hypokalemia: Potassium was replaced and is now normalized (7) Acute hypoxemic respiratory failure: -resolved Likely secondary to large doses of narcotics given in ED Will keep close eye on O2 sats so as not to suppress her respiratory drive (8) Hypertension: Blood pressures are controlled to slightly elevated likely due to IV dexamethasone -Continue home losartan -Continue to monitor blood pressures (9) Aortic stenosis: Heart murmur found on admission--> Holosystolic, with +S2--> checked ECHO which shows mod-severe LVOT obstruction, could not visualize AV well initially Was hydrated overnight and tachycardia and hydration status improved Repeat limited echo shows moderate aortic stenosis and resolution of LVOT obstruction with preserved EF She is completely asymptomatic prior to admission with her aortic stenosis ECG with anterolat ST depressions which improved somewhat after hydration- cardiology thinks secondary to hyperdynamic state in the setting of LVOT Troponin mildly elevated at 0.6 was myocardial demand ischemia/supply demand mismatch-no need for ischemic evaluation -Continue to follow with cardiology as an outpatient after discharge (10) Hypothyroidism: Continue home dose levothyroxine (11) Abnormal ECG: As noted above (12) Acute blood loss anemia: Hemoglobin down to 10.5 from 11.6 status post surgery Hemodynamically stable -Follow CBC in the morning (13) DVT prophylaxis: SCDs Avoid chemical prophylaxis due to spinal surgery Disposition-remain on medical/surgical floor, but possible discharge to home on Sunday Admission and Anticipated Discharge Date Admission Date: March 31, 2020 Anticipated date of discharge: 04/05/20 Subjective Patient feeling much better today. She has been out of bed to chair and ambulated with physical therapy. Her pain is much more controlled today. She denies chest pains or shortness of breath. She is tolerating p.o. No bowel movement yet. She is making urine. Review of Systems Review of Systems: All systems reviewed & are unremarkable except as noted in HPI & below Physical Exam Constitutional: WD/WN, vitals as above + obese Eyes: + anicteric sclerae Neck: trachea midline, no thyromegaly Respiratory: normal respiratory effort, lungs clear to auscultation Cardiovascular: Rate/Rhythm: regular rhythm and + tachycardic Heart Sounds: normal S2 and + murmur (3/6 systolic murmur heard throughout) Vessels: no JVD Extremities: + edema (trace edema legs bilat); no calf tenderness Chest (Breasts): Chest: normal inspection of chest Gastrointestinal (Abdomen): normal bowel sounds, soft, nontender, no hepatosplenomegaly Musculoskeletal: Extremities: extremities normal to inspection; no cyanosis and no clubbing Skin: no rashes, warm and dry + wound (Dressing over incision over lower back with PETTY drain with serosanguineous drainage) Neurologic: awake Psychiatric: A+Ox3, euthymic affect Lymphatic: no lymphedema Results & Data Results & Data ([facility]) Laboratory Results 04/04/20 04/04/20 Range/Units 06:12 06:12 WBC 9.13 (4.8-10.8) K/uL RBC 3.77 L (4.2-5.4) M/uL Hgb 10.5 L (12.0-16.0) g/dL Hct 35.4 L (37-47) % MCV 93.9 (80-100) fL MCH 27.9 (25-34) pg MCHC 29.7 L (32-36) g/dL RDW Std Deviation 46.6 H (36.4-46.3) fL RDW Coeff of Leia 13.5 (11.5-14.5) % Plt Count 183 (130-400) K/uL MPV 11.0 H (7.4-10.4) fL Immature Gran % (Auto) 0.2 % Neut % (Auto) 72.2 % Lymph % (Auto) 22.1 % [place] % (Auto) 5.4 % Eos % (Auto) 0.1 % Baso % (Auto) 0.0 % Neut # (Auto) 6.59 H (1.4-6.5) K/uL Lymph # (Auto) 2.02 (1.2-3.4) K/uL [place] # (Auto) 0.49 (0.11-0.59) K/uL Eos # (Auto) 0.01 (0-0.5) K/uL Baso # (Auto) 0.00 (0-0.2) K/uL Immature Gran # (Auto) 0.02 (0.00-0.02) K/uL Sodium 144 (136-145) mmol/L Potassium 4.0 (3.5-5.1) mmol/L Chloride 112 H (98-107) mmol/L Carbon Dioxide 30 (21-32) mmol/L Anion Gap 2.0 L (3-11) BUN 26 H (7-18) mg/dl Creatinine 1.00 (0.6-1.2) mg/dl Est Cr Clr Drug Dosing 66.2 ml/min Est GFR ( Amer) 67.5 Est GFR (Non-Af Amer) 58.3 BUN/Creatinine Ratio 26.3 H (10-20) Glucose 112 H (70-99) mg/dl Calcium 9.7 (8.5-10.1) mg/dl PG Care Time/CCT Total # of Minutes Spent Total Time Spent with Patient: Total time spent is greater than 50% in coordination of care (as documented) at patient's floor/unit and/or counseling patient: Coding Level of Care Code 71567 Subseq Hosp Care Lvl 2 Diagnoses Lower back pain M54.42; M54.41 Back pain laterality: midline Chronicity: acute Sciatica laterality: bilateral sciatica Sciatica presence: with sciatica Spondylolisthesis of lumbar region M43.16 Lumbar disc herniation M51.26 ROSE (acute kidney injury) N17.9 Fall W19.XXXA Encounter type: initial encounter Hypokalemia E87.6 Acute hypoxemic respiratory failure J96.01 Hypertension I10 Aortic stenosis I35.0 Hypothyroidism E03.9 Abnormal ECG R94.31 Acute blood loss anemia D62 DVT prophylaxis Z29.9 (1) Lower back pain Back pain laterality: midline Chronicity: acute Sciatica laterality: bilateral sciatica Sciatica presence: with sciatica Qualified Code(s): M54.42 - Lumbago with sciatica, left side; M54.41 - Lumbago with sciatica, right side (2) Fall Encounter type: initial encounter Qualified Code(s): W19.XXXA - Unspecified fall, initial encounter
[2020-04-05] MEDS: POLYETHYLENE (MIRALAX) 17 GM PACK PO SCH ×4 (00:07→11:25)
[2020-04-05] MEDS: OXYCODONE HCL IR 5 MG TAB (IMMEDIATE RELEASE) PO PRN ×2 (03:23→09:40)
[2020-04-05] MEDS: LEVOTHYROXINE SODIUM 75 MCG TABLET PO SCH (06:13)
[2020-04-05] MEDS: LIDOCAINE 5% 1 PATCH TD SCH (08:45)
[2020-04-05] MEDS: DICLOFENAC SOD 1% GEL 100 GM TUBE EXT SCH (08:46)
[2020-04-05] MEDS: LOSARTAN POTASSIUM 50 MG TAB PO SCH (08:46)
--- NOTE | 2020-04-05 09:34 | Discharge Summary ---
Date of Service April 05, 2020 Admission HPI Per Admitting Provider Anabel Estes is a 65 year old woman with a past medical history of hypothyroidism, hypertension and hyperlipidemia who presents today after suffering a fall last week and having worsening back pain. Ms. Estes had a fall from her own height last week on either Sunday or afternoon. She described the fall as kind of a twisting fall that was purely mechanical which she ended up on her side. She did not hit her head, did not have any other injuries. She was able to get herself up and ambulated okay. She then developed worsening pain. The pain is located both in her lumbar spine area as well as shooting down her leg to just short of her knee. It became most severe over the weekend and has not gone down since then. Pain is 10/10 she is unable to function. Was here with family from [facility] looking for a house but was unable to help family in this endeavor and came into emergency department. She tells me she has been having urinary symptoms as well, she had decreased urination over the weekend and has noticed occasional small amounts of unexpected urinary incontinence since then. She is incredibly uncomfortable at present and is having trouble relaying her story to me secondary to pain. Patient does not endorse any chest pain, shortness of breath, exertional symptoms, fevers, chills, sweats, nausea, vomiting, belly pain, weakness or lower limb weakness, discoordination, fecal incontinence, or any other concerns on review of systems On presentation to the emergency department patients vitals were WNL apart from some mild tachycardia, she received one dose of toradol, and 4 doses of .5 mg Dilaudid 10 mg of dexamethasone. Lumbar spine MRI showing herniation of L1-L2, with moderate impact upon anterior aspect of thecal sac with mild narrowing of left neural foramina. L4-L5 and L5-S1 with broad based bulging and moderate narrowing of spinal canal at L4L5 I reached out to Orthopedic spine but no one is second vp hr assessment tonight, also reached out to pain management. Wishes to be a full code, nonsmoker, no alcohol abuse, no drug abuse. Principal Diagnosis Lumbar spinal listhesis L4-5 with herniated was pulposis L4-5. Discharge Data Allergies Allergy/AdvReac Type Severity Reaction Status Date / Time Penicillins Allergy Rash Unverified 03/31/20 18:39 codeine AdvReac N/V Unverified 03/31/20 18:39 Consultations 03/31/20 19:29 ED Decision to Admit Stat 03/31/20 22:05 Consult Pain Management Routine 04/01/20 09:13 Consult Orthopedic Surgery Routine 04/02/20 07:19 Consult Cardiology Routine 04/02/20 20:29 Consult Case Management - Discharge Planning Routine Procedures Performed Operation Date: 04/02/20 07:00 Actual Procedures p L4-L5 Decompression and Fusion, Spinal Cord Monitoring(Not Applicable) - Anjum Hinton DO Ordered Studies 03/31/20 15:29 MR lumbar spine wo con Stat 03/31/20 22:05 US venous doppler LE BI Routine 04/02/20 13:30 FL fluoroscopy <1hr Routine FL lumbar spine 2-3V Routine Hospital Course (1) Lumbar disc herniation: Patient was admitted to hospital with severe pain and inability to ambulate. She was ultimately taken to surgery underwent decompression fusion L4-5 tolerated this well was taken to orthopedic floor postoperative. Postop day 1 she was up and ambulating leg symptoms markedly improved progressed to postop day #2 on postop day 3 she was up and ambulating excellent strength testing PETTY drain decreasing probably. Pain well controlled. Subsequently discharged home. Discharge orders instructions from the chart for further review. Total Time Total Time Spent Total Time Spent (In Minutes): 20 minutes Discharge Plan Discharge Items Patient Disposition: Home - Self-Care Reason For Visit: FALL,HERNIATED DISC,BACK PAIN Discharge Diagnosis: Spondylolisthesis L4-5 with acute disc herniation L4-5. Condition on Discharge: Good Activity: As commented below Non-emergency contact: Primary Care Provider Call non-emergency contact if: you have any medication questions Follow-up/Referrals: Bay Lambert MD [Physician] - (Please follow up with Dr. Lambert within 1 month after discharge.) Anjum Hinton DO [Surgeon] - Yanira Mejia D.O. [Primary Care Provider] - Diet: Regular Addtl Attending Provider Instructions: ACTIVITY RECOMMENDATIONS: SELF CARE INSTRUCTIONS AFTER THORACIC/LUMBAR FUSIONS 1. You may walk to your tolerance. It is good exercise for your legs and back. Expect some back and intermittent leg aches and pains. 2. You may perform "counter-top" level activities (make a sandwich, estela with a project, etc.). 3. No bending or lifting of more than 10 pounds or back twisting of any nature (roll like a log when turning in bed). 4. You may ride in a car for 20-30 minutes at a time. No driving until after your first visit with your doctor. 5. Frequent changes of position and restricting sitting to 30 minutes at a time will help limit the amount of back spasms and stiffness you may experience. 6. You may discontinue the use of ambulatory aids (cane, crutches, etc.) once your strength and confidence allow. 7. You may mechanical insulator the shower and let water strike your incision when you arrive home at least once daily. Do not take a tub bath, sit in a hot tub or go into a swimming pool until after your first recheck in the office. SPECIAL CARE INSTRUCTIONS: VERY IMPORTANT TO READ AND REVIEW A. Your surgical incision has been closed with a cosmetic suture under the skin that will dissolve in about 6 weeks. In 14 days, you can use a pair of clean scissors and cut the suture that is left outside of the skin at the ends of your incision. 1. The small skin tapes can be removed 7 days after surgery if they have not fallen off by that point. 2. You may keep the wound open to air as much as possible to promote healing after post-op day number 5 unless told otherwise by your doctor. 3. If you think the wound looks like it is becoming infected (redness or worsening drainage) and/or you are experiencing fever, chill or worsening back pain and muscle spasms, contact the office so that we may evaluate you as soon as possible. B. Complications are uncommon, but please contact us if you have any signs or symptoms of: 1. wound infection (fever higher than 102.5 degrees F, redness, separation of wound, drainage, or increasing pain from the incision) 2. blood clots in legs (pain, swelling, redness and warmth in legs) 3. urinary tract infection (fever higher than 102.5 degrees F, burning upon urination or increased frequency of urination) 4. nerve problems (inability to walk on your toes or heels, numbness, loss of bowel or bladder control) 5. any other symptoms that concern you C. Please call the office at if you have any concerns or q uestions about your operation or recovery. D. No smoking! Smoking drastically decreases the chance of a solid fusion. E. Do not take any anti-inflammatory medications (Indocin, Advil, Motrin, Aspirin, Naprosyn, etc.) as these may inhibit the chance of a solid fusion. Tylenol is okay to take for pain. MANAGING PAIN AFTER SPINAL SURGERY 1. Narcotic medication is intended for short-term use and will be provided for surgical pain. Surgical pain usually lasts for a period of 4-6 weeks. Narcotic medication includes Percocet, Vicodin, Darvocet, Tylenol #3 or Lortab. 2. Longer-term pain is more appropriately treated with non-narcotic medication such as Tylenol ES. 3. Muscle spasm is not appropriately treated with narcotics. Muscle relaxers such as Soma, Flexeril or Skelaxin can be used along with Tylenol ES. 4. Remember that we all live with some "aches and pains". This is not unusual or uncommon after an injury or as we get older. a. Back pain is expected and may include muscle spasms for 4 to 6 weeks after surgery. The pain should gradually improve. If the pain worsens for no apparent reason, please contact the office. b. Intermittent leg pain may also be experienced and should not be concerned about unless it worsens for no apparent reason. If so, please contact the office. 5. We will provide appropriate medication within the normal guidelines of their prescribed use. We will also be very cautious and aware of potential abuse and extended duration of patients' medication needs. a. Pain medications are for your comfort and to assist with sleep and rest so that the tissue can heal. They are not provided in order to return to normal activity and should not be used through the day. To do so or worsening pain at night can result from ongoing tissue damage and development of tolerance to the prescribed medicine. 6. Please allow 2-3 days to process refills. Prescriptions will not be mailed but must be picked up at the office. FOLLOW UP VISIT: Keep your scheduled follow-up appointment. Any questions, please call the office at . Pending Studies at Discharge: No Stand-Alone Forms: [employer], Smoking Cessation Medications and DC Order Prescriptions: New tramadol 50 mg tablet 50 mg PO Q6H PRN (Reason: pain, moderate) Qty: 20 RF: 0 oxycodone 5 mg tablet 5 mg PO Q6H PRN (Reason: pain, severe) Qty: 20 RF: 0 Continued levothyroxine 75 mcg tablet 75 mcg PO QAM RF: 0 losartan 50 mg tablet 50 mg PO DAILY RF: 0 red yeast rice 600 mg Capsule 2,400 mg PO DAILY RF: 0 Discontinued ibuprofen 200 mg Tablet 400 mg PO BID PRN (Reason: Pain) RF: 0 Discharge Orders: Discharge Order (Routine); Ordered 04/05/20 Ordered By: Anjum Hinton Admission Data Admit Date/Time: 03/31/20 20:39 Attending Provider: Chano Aguirre Admit Provider: Anjum Hinton Primary Care Provider: Yanira Mejia Other Providers: Mark Robert ; Melissa Krishnan ; Anjum Hinton ; Bay Lambert
[2020-04-05 09:54] LABS: Eosinophils # (auto) 0.06 K/uL (0-0.5); Eosinophils % (auto) 0.7 %; Hematocrit (blood only) 33.9 % (37-47); Hemoglobin 10.7 g/dL (12.0-16.0); Immature Granulocytes # (auto) 0.02 K/uL (0.00-0.02); Immature Granulocytes % (auto) 0.2 %; Lymphocytes # (auto) 2.12 K/uL (1.2-3.4); Lymphocytes % (auto) 24.5 %; Mean Corpuscular Hemoglobin 28.8 pg (25-34); Mean Corpuscular Hgb Conc 31.6 g/dL (32-36); Mean Corpuscular Volume 91.1 fL (80-100); Mean Platelet Volume 10.8 fL (7.4-10.4); Monocytes # (auto) 0.43 K/uL (0.11-0.59); Neutrophils # (auto) 6.04 K/uL (1.4-6.5); Neutrophils % (auto) 69.6 %; Platelet Count 194 K/uL (130-400); RDW Coefficient of Variation 13.6 % (11.5-14.5); RDW Standard Deviation 45.6 fL (36.4-46.3); Red Blood Count 3.72 M/uL (4.2-5.4); White Blood Count 8.67 K/uL (4.8-10.8)
--- NOTE | 2020-04-05 10:36 | Hospitalist Progress Note ---
Date of Service April 05, 2020 Assessment & Plan (1) Lower back pain: Pooja Estes is a 65 year old woman who presents for evaluation after fall and worsening 10/10 back pain, found ot have lumbar HNP L1-2 and 4-5 and with L4-5 radiculopathy Back Pain/Thecal sac compression/lumbar radiculopathy with HNP Lumbar spine, radiating down left leg with weakness and numbness, severe pain MRI showing disc herniation with thecal sac compression, Left central L1-2 HNP with mild-mod left neuroforaminal narrowing and L4-5 HNP broad based disc bulge Mild urinary symptoms, without saddle area anesthesia, anal laxity or other red flag symptoms 10 mg decadron + 6 mg q6h x 3 more doses given upon admission -Now status post lumbar decompression and fusion on 04/02 Symptoms are significantly improved, pain is better controlled and she has been out of bed and ambulating with PT -Appreciate orthopedic spine surgery management for postoperative care -Continue pain control, dexamethasone once daily PETTY drain discontinued Hemoglobin with slight drop and then stabilized (2) Spondylolisthesis of lumbar region: As above (3) Lumbar disc herniation: As above (4) ROSE (acute kidney injury): Creatinine elevated to 1.74 on admission and now normalized with IVFs Likely secondary to dehydration as patient tells me PO intake has been poor when she had the severe pain (5) Fall: The cause of her HNP (6) Hypokalemia: Potassium 3.3 this morning, replaced Patient not taking any medications that should decrease her potassium, this will likely not recur as she returns to normal po intake (7) Acute hypoxemic respiratory failure: -resolved Likely secondary to large doses of narcotics given in ED No further incidences and is tolerating oxycodone 5mg (8) Hypertension: Blood pressures are controlled to slightly elevated likely due to IV dexamethasone -Continue home losartan (9) Aortic stenosis: Heart murmur found on admission--> Holosystolic, with +S2--> checked ECHO which shows mod-severe LVOT obstruction, could not visualize AV well initially Was hydrated overnight and tachycardia and hydration status improved Repeat limited echo shows moderate aortic stenosis and resolution of LVOT obstruction with preserved EF She is completely asymptomatic prior to admission with her aortic stenosis ECG with anterolat ST depressions which improved somewhat after hydration- cardiology thinks secondary to hyperdynamic state in the setting of LVOT Troponin mildly elevated at 0.6 was myocardial demand ischemia/supply demand mi smatch-no need for ischemic evaluation -Continue to follow with cardiology as an outpatient after discharge (10) Hypothyroidism: Continue home dose levothyroxine (11) Abnormal ECG: As noted above (12) Acute blood loss anemia: Hemoglobin down to 10.5 from 11.6 status post surgery, stablized Hemodynamically stable (13) DVT prophylaxis: SCDs Avoid chemical prophylaxis due to spinal surgery Disposition- to home, medically ok for discharge Admission and Anticipated Discharge Date Admission Date: March 31, 2020 Supervising Physician Co-Signing Physician Notes Patient seen and examined with Keshia NAYAK. I agree with their exam findings, review of systems, assessment and plan. I personally reviewed the lab work and imaging as well. patient feeling great on day of discharge, minimal pain, ambulating independently, eating well, + flatus, making urine will discharge to home, Dr. Hinton took care of discharge planning - Disc herniation with radicular pain s/p decompression on 04/02, doing quite well discharge to home, follow up with Dr. Hinton discharge instructions provided Subjective Ms. Estes feels good today except for some pain at the incision site. She is looking forward to going home. ROS Constitutional: no chills, aches, sweats or fever Respiratory: no sob,cough, sputum, or wheezing Cardiac: no chest pain, palpitations, edema, orthopnea or lightheadedness GI: no abdominal pain, nausea, vomiting, diarrhea or constipation : no dysuria or hesitancy Extremities: no joint pain or weakness Skin: no rash All other systems reviewed and negative Physical Exam Physical Exam: General: no distress Eyes: normal inspection, PERLL Respiratory: chest non tender, clear to auscultation, normal breath sounds, no respiratory distress, no accessory muscle use Cardiac: regular rate and rhythm, no rub or gallop, systolic murmur 3/6, no edema, no jvd GI/: active bowel sounds, no abd pain or tenderness, soft, non distended Extremities: normal range of motion, normal strength, non tender Neuro/Psych: alert and oriented x 3, normal mood and affect Skin: normal color, dry Results & Data Results & Data ([facility]) Vital Signs (Past 12 Hours) Vital Signs Temp Pulse Resp BP Pulse Ox 04/05/20 07:01 36.9 C 76 16 152/78 H 97 04/04/20 23:04 36.8 C 81 16 112/68 97 PG Care Time/CCT Total # of Minutes Spent Total Time Spent with Patient: Total time spent is greater than 50% in coordination of care (as documented) at patient's floor/unit and/or counseling patient: Coding Level of Care Code 58468 Subseq Hosp Care Lvl 3 Diagnoses Lower back pain M54.42; M54.41 Back pain laterality: midline Chronicity: acute Sciatica laterality: bilateral sciatica Sciatica presence: with sciatica Spondylolisthesis of lumbar region M43.16 Lumbar disc herniation M51.26 ROSE (acute kidney injury) N17.9 Fall W19.XXXA Encounter type: initial encounter Hypokalemia E87.6 Acute hypoxemic respiratory failure J96.01 Hypertension I10 Aortic stenosis I35.0 Hypothyroidism E03.9 Abnormal ECG R94.31 Acute blood loss anemia D62 DVT prophylaxis Z29.9 (1) Lower back pain Back pain laterality: midline Chronicity: acute Sciatica laterality: bilateral sciatica Sciatica presence: with sciatica Qualified Code(s): M54.42 - Lumbago with sciatica, left side; M54.41 - Lumbago with sciatica, right side (2) Fall Encounter type: initial encounter Qualified Code(s): W19.XXXA - Unspecified fall, initial encounter
[2020-04-05 10:41] LABS: Albumin Globulin Ratio 0.9 (0.9-2); Albumin Level 2.9 gm/dl (3.4-5.0); BUN Creatinine Ratio 27.8 (10-20); Bilirubin,Total 0.5 mg/dl (0.2-1); Calcium 9.7 mg/dl (8.5-10.1); Creatinine Clr Calc Pharmacy 68.3 ml/min; Est GFR (Non-African American) 60.4; Globulin 3.3 gm/dl (2.5-4.0); Potassium 3.3 mmol/L (3.5-5.1); Total Protein 6.2 gm/dl (6.4-8.2)
[2020-04-05] MEDS ORDERED: POTASSIUM CHLORIDE 20 MEQ TABCR PO STA (10:44)
[2020-04-05] MEDS: DEXAMETHASONE SOD PHOSPHATE 8 MG in SYRINGE 0 ML IV SCH (11:08)
== END 2020-04-05 12:16 | disposition home or self-care (01) | DRG 453 ==
LOC: ED 15:01 → SUATTDRO 20:39 → 3W 20:39